=== PATIENT | female | born 1990 | race Caucasian/White ===

== ENCOUNTER 2018-02-04 18:23 | Outpatient (REF) | payer MEDICAID, SELFPAY ==
[2018-02-04 22:23] LABS: HCT 43.4 % (36.0-46.0); HGB 15.2 g/dL (12.0-15.5); Mean Corpuscular Hemoglobin 32.8 pg (27.0-33.0); Mean Corpuscular Volume 93.7 fL (80-95); Mean Platelet Volume 10.8 fL (8.0-11.0); Platelet Count 279 x1000/uL (130-400); RBC 4.63 m/cumm (4.00-5.20); RBC Distribution Width 12.6 % (11.7-14.6); White Blood Cell Count 11.05 k/cumm (4.4-10.8)
[2018-02-04 22:37] LABS: ALT 45 U/L (12-78); AST 24 U/L (15-37); Albumin 4.1 g/dL (3.4-5.0); Alkaline Phosphatase 80 U/L (46-116); BUN 10 mg/dL (7-18); Bilirubin, Total 0.2 mg/dL (0.2-1.0); CREATININE 0.83 mg/dL (0.55-1.02); Calcium 9.1 mg/dL (8.5-10.1); Chloride 104 mmol/L (98-107); Glucose 98 mg/dL (70-100); Lipase 164 U/L (73-393); Potassium 4.4 mmol/L (3.5-5.1); Sodium 140 mmol/L (136-145); Total Protein 7.8 g/dL (6.4-8.2)
== END 2018-02-04 18:24 ==
LOC: NCHCN 18:23
PROVIDERS: PCP Plastic Surgery; Visit Provider Nurse Practitioner Family
DX: R10.9 Unspecified abdominal pain (principal); R19.7 Diarrhea, unspecified
CPT/HCPCS: 80053; 83690; 85027

== ENCOUNTER 2018-02-09 14:46 | Outpatient (REF) | payer MEDICAID, SELFPAY ==
[2018-02-09 21:35] LABS: Abs Immature Grans 0.04 k/cumm (0.0-0.09); Absolute Basophil Count 0.06 k/cumm (0.0-0.2); Absolute Eosinophil Count 0.21 k/cumm (0.0-0.7); Absolute Lymphocyte Count 3.38 k/cumm (1.2-3.4); Absolute Monocyte Count 0.69 k/cumm (0.11-0.7); Basophils % 0.5; Eosinophils % 1.8; HCT 42.2 % (36.0-46.0); HGB 14.7 g/dL (12.0-15.5); Immature Grans % 0.3; Lymphocytes % 28.9; Mean Corp. HGB Concentration 34.8 g/dL (32.0-36.0); Mean Corpuscular Hemoglobin 33.3 pg (27.0-33.0); Mean Corpuscular Volume 95.7 fL (80-95); Mean Platelet Volume 10.7 fL (8.0-11.0); Monocytes % 5.9; Neutrophils % 62.6; Platelet Count 289 x1000/uL (130-400); RBC 4.41 m/cumm (4.00-5.20); RBC Distribution Width 12.5 % (11.7-14.6); White Blood Cell Count 11.68 k/cumm (4.4-10.8)
[2018-02-09 21:36] LABS: Absolute Neutrophil Count 7.31 k/cumm (1.2-6.7)
[2018-02-09 21:42] LABS: ALT 41 U/L (12-78); AST 22 U/L (15-37); Albumin 4.1 g/dL (3.4-5.0); Alkaline Phosphatase 82 U/L (46-116); BUN 10 mg/dL (7-18); CREATININE 1.04 mg/dL (0.55-1.02); Calcium 9.1 mg/dL (8.5-10.1); Chloride 102 mmol/L (98-107); Glucose 128 mg/dL (70-100); Potassium 3.5 mmol/L (3.5-5.1); Sodium 140 mmol/L (136-145); Total Protein 7.9 g/dL (6.4-8.2)
== END 2018-02-09 14:47 ==
LOC: NCHCN 14:46
PROVIDERS: PCP Plastic Surgery; Visit Provider Nurse Practitioner Family
DX: R19.7 Diarrhea, unspecified (principal); R10.9 Unspecified abdominal pain
CPT/HCPCS: 80053; 85025

== ENCOUNTER 2018-02-12 19:57 | Emergency (ER) | payer MEDICAID, SELFPAY ==
[2018-02-12 20:03] VITALS: BP 120/75; PULSE 86; RESP 14; TEMP 37.1; O2SAT 97
--- NOTE | 2018-02-12 20:34 | DI.RPTCT_ITS ---
SYMPTOM/DIAGNOSIS: RUQ , ABD PAIN CT ABDOMEN AND PELVIS: Images were performed from the lung bases through the ischial tuberosities after IV and without oral contrast. The lung bases are clear. The liver, spleen, gallbladder, pancreas, kidneys and adrenals appear normal. The bladder is nearly empty. The uterus and ovaries are within normal limits. The appendix appears normal. There is no bowel dilatation or inflammatory change. No free air, free fluid or adenopathy seen. There are no suspicious bony abnormalities. IMPRESSION: Negative CT of the abdomen and pelvis.
[2018-02-12] MEDS: Omnipaque 350 MG/ML 100 ML BTL IJ (21:16)
[2018-02-12] MEDS: Ketorolac 30 MG/ML VIAL IVP (21:20)
[2018-02-12] MEDS: Normal Saline 1,000 ML 1000 ML IV (21:20)
[2018-02-12] MEDS: Ondansetron O.D.T. 4 MG TABEF PO (21:20)
[2018-02-12 21:26] LABS: Abs Immature Grans 0.04 k/cumm (0.0-0.09); Absolute Basophil Count 0.07 k/cumm (0.0-0.2); Absolute Eosinophil Count 0.33 k/cumm (0.0-0.7); Absolute Lymphocyte Count 3.34 k/cumm (1.2-3.4); Absolute Neutrophil Count 7.23 k/cumm (1.2-6.7); Basophils % 0.6; Eosinophils % 2.8; HCT 41.6 % (36.0-46.0); HGB 14.4 g/dL (12.0-15.5); Immature Grans % 0.3; Lymphocytes % 28.4; Mean Corp. HGB Concentration 34.6 g/dL (32.0-36.0); Mean Corpuscular Hemoglobin 32.6 pg (27.0-33.0); Mean Corpuscular Volume 94.1 fL (80-95); Mean Platelet Volume 10.2 fL (8.0-11.0); Monocytes % 6.5; Neutrophils % 61.4; Platelet Count 271 x1000/uL (130-400); RBC 4.42 m/cumm (4.00-5.20); RBC Distribution Width 12.5 % (11.7-14.6); White Blood Cell Count 11.77 k/cumm (4.4-10.8)
[2018-02-12 21:26] LABS: Bilirubin Negative (Negative); Blood Negative (Negative); Clarity Clear; Glucose Negative (Negative); Ketones Negative (Negative); Leukocyte Esterase Small (Negative); Nitrite Negative (Negative)
--- NOTE | 2018-02-12 21:36 | ED.GENADUL_ITS ---
Disposition Clinical Impression: Abdominal pain, Urinary tract infection Disposition: HOME Condition: Improving Instructions: Urinary Tract Infection in Women (ED), Abdominal Pain (ED) Additional Instructions: Return immediately to the emergency department for any new or significant worsening in symptoms including significant rectal bleeding or hemorrhage, severe increase in pain and discomfort, inability to tolerate any oral intake, any further concerns you may have. Otherwise it is recommended to have a clear liquid diet for the next 2-3 days and slowly advance diet as tolerated. If you are not improving over the next week with your urinary tract infectious symptoms feel free to follow-up with your primary care provider otherwise a referral has been placed for a general surgery follow-up in the next 2 weeks for further testing of your abdominal pain. Prescriptions: Cephalexin [Keflex] 500 mg PO BID #13 cap Ondansetron [Ondansetron Odt] 4 mg PO Q8H PRN #6 tab.rapdis PRN Reason: Nausea Referrals: DAVID CAI [Primary Care Provider] - 1 week (If not improving please follow- up with primary care provider for reassessment next week.) Vannessa Puga MD [ [facility] STAFF PHYSICIAN] - 2 weeks (Follow-up with general surgeon in the next 2 weeks for reassessment of your right upper abdominal pain. ) Forms: Work Release Medical Decision Making - Lab Data Laboratory Tests 02/12/18 02/12/18 20:13 20:50 Urine Color Cancelled Yellow Urine Clarity Cancelled Clear Urine pH Cancelled 7.0 Ur Specific [place] Cancelled 1.020 Urine Protein Cancelled Negative Urine Ketones Cancelled Negative Urine Blood Cancelled Negative Urine Nitrite Cancelled Negative Urine Bilirubin Cancelled Negative Urine Urobilinogen Cancelled 1.0 H Ur Leukocyte Esterase Cancelled Small H Urine Glucose Cancelled Negative Results reviewed for labs ordered during visit: Yes - Radiology Data Radiology results: report reviewed, image reviewed - Medical Decision Making Patient presenting the emergency department for complaint of right upper quadrant pain, nausea and vomiting after eating, and generalized malaise. Patient also states some rectal bleeding that is intermittent with mucus. She states that she has had multiple visits to primary care who has not done anything and said it would just resolve patient does have positive Quesada sign otherwise negative physical exam. Plan to perform labs and radiological imaging of the abdomen with concern for possible gallbladder etiology or inflammatory bowel disease given rectal bleeding. Patient is otherwise stable and no acute signs of distress so plan to give IV fluids and Toradol any results. review of labs that are unremarkable except for mild urinary tract infection and very mild leukocytosis but no obvious anemia or significant blood loss patient consented to rectal examination. CT was also reviewed and shows no acute findings. Rectal examination was done and no blood was seen in rectal vault, no fissure, no hemorrhoids. Given that patient is otherwise feeling well and asymptomatic and afebrile with no major leukocytosis I do feel that patient can be safely discharged with treatment for urinary tract infection otherwise I do feel that she should follow-up with her primary care provider if not improving over the next week otherwise should have more testing done for right upper quadrant pain versus inflammatory bowel disease with consideration of possible HIDA scan or colonoscopy or both. Patient encouraged to return immediately for any new or worsening symptoms otherwise given patient's nausea she was prescribed Zofran and encouraged to take [id number] pain medication as she normally would. After discussion of diagnosis and plan of care with patient patient agreed and stated no further needs, questions, or concerns at this time. History of Present Illness - General Chief complaint: Abd Prob Stated complaint: ABD PAIN Time Seen by Provider: 02/12/18 20:06 Source: patient, RN notes reviewed Mode of arrival: ambulatory Limitations: no limitations - History of Present Illness Initial comments: Patient reports for the past week she has had abdominal pain. She states that it seems to worsen after she eats with significant nausea and vomiting after food intake and right upper quadrant pain. She states that she has been seen by her primary care and they have just told her that it would resolve on its own. Last 3 days she has noted some hematuria and possible blood in her stool as well. She does state that bowel movements have been uncomfortable. Patient denies any fever chills, chest pain, shortness of breath, difficulty breathing. Onset/Timin -: week(s) Location: abdomen, right Radiation: non-radiation Quality: aching Consistency: constant Improves with: none Worsens with: eating Treatments Prior to Arrival: NSAID - Related Data Citalopram [CeleXA] 1 tab PO DAILY 10/05/17 Etonogestrel [Nexplanon] 1 unit DAILY 10/05/17 Ibuprofen 1 tab PO PRN PRN 10/05/17 Zonisamide [Zonegran] 1 cap PO DAILY 10/05/17 Cephalexin [Keflex] 500 mg PO BID #13 cap 02/12/18 Ondansetron [Ondansetron Odt] 4 mg PO Q8H PRN #6 tab.rapdis 02/12/18 Allergies Allergy/AdvReac Type Severity Reaction Status Date / Time metronidazole [From Flagyl] Allergy Severe Hives Unverified 10/05/17 16:39 vancomycin Allergy Severe Hives Unverified 10/05/17 16:39 Review of Systems Constitutional: denies: chills, fever, malaise Respiratory: denies: cough, shortness of breath Cardiovascular: denies: chest pain Gastrointestinal: abdominal pain, nausea, vomiting, diarrhea, hematochezia. denies: constipation, hematemesis, melena Genitourinary: dysuria, hematuria. denies: discharge, abnormal menses Musculoskeletal: denies: back pain Skin: denies: rash Comment: All other systems reviewed and negative Past Medical History - Past Medical History Ovarian cyst, migraine, ibs Surgical history: non-contributory - Social History Smoking status: current everyday smoker Alcohol use: none Drug use: none Living Situation: lives with family General Exam - General Limitations: no limitations General appearance: alert, in no apparent distress, other (Patient comfortably sitting in bed with no acute signs of distress or discomfort) - Head Head exam: Present: atraumatic - ENT ENT exam: Present: mucous membranes moist - Respiratory Respiratory exam: Present: normal lung sounds bilaterally. Absent: respiratory distress, wheezes, rales, rhonchi, stridor, decreased breath sounds - Cardiovascular Cardiovascular Exam: Present: regular rate, normal rhythm, normal heart sounds. Absent: tachycardia, systolic murmur, diastolic murmur, rubs, gallop, clicks - GI/Abdominal GI/Abdominal exam: Present: soft, tenderness (Right upper quadrant), diminished bowel sounds. Absent: guarding, rebound, rigid, organomegaly, mass, bruit, pulsatile mass, hernia - Expanded GI/Abdominal Exam No standard instances GI/Abdominal exam: Present: Quesada's sign. Absent: psoas sign, Rovsing's sign, tenderness at Mcburney's Point - Rectal Rectal exam: Present: normal inspection, normal rectal tone, tenderness (Mild), other (Performed with RN torch solderer in the room). Absent: black stool, bloody stool, fecal impaction, hemorrhoids, mass - Back Exam Back exam: Absent: CVA tenderness (R), CVA tenderness (L) - Neurological Exam Neurological exam: Present: alert, oriented X3. Absent: altered - Psychiatric Psychiatric exam: Present: anxious - Skin Skin exam: Present: warm, dry, normal color. Absent: cyanosis, diaphoretic, pallor, mottled Course Vital Signs - 24 hr 02/12/18 20:03 Temperature 37.1 C Pulse 86 Respiratory 14 Rate Blood Pressure 120/75 Pulse Oximetry 97
[2018-02-12 21:38] LABS: ALT 38 U/L (12-78); AST 23 U/L (15-37); Albumin 3.7 g/dL (3.4-5.0); Alkaline Phosphatase 66 U/L (46-116); Anion Gap 10.2 mmol/L (3-11); BUN 7 mg/dL (7-18); Bilirubin, Total 0.5 mg/dL (0.2-1.0); CO2 25.8 mmol/L (21.0-32.0); CREATININE 0.77 mg/dL (0.55-1.02); Calcium 8.8 mg/dL (8.5-10.1); Chloride 104 mmol/L (98-107); Glucose 100 mg/dL (70-100); Lipase 140 U/L (73-393); Potassium 3.6 mmol/L (3.5-5.1); Sodium 140 mmol/L (136-145); Total Protein 7.8 g/dL (6.4-8.2)
[2018-02-12 21:42] LABS: Bacteria Few HPF (Negative); C & S Indicated? Yes; Casts Negative LPF (Negative); Crystals Negative HPF (Negative); Epithelial Cells Few HPF (Negative); Mucus Negative (Negative); RBC Negative (0-2)
--- NOTE | 2018-02-12 21:42 | DI.VRAD_ITS ---
EXAM: CT Abdomen and Pelvis With Intravenous Contrast CLINICAL HISTORY: 27 years old, female; Pain; Abdominal pain; Localized; Right upper quadrant (ruq); Patient HX: Ruq abd pain TECHNIQUE: Axial computed tomography images of the abdomen and pelvis with intravenous contrast. Coronal and sagittal reformatted images were created and reviewed. COMPARISON: CT - ABD PELVIS WITH CONTRAST 2017-12-03 13:40 FINDINGS: In appendix is normal. Small bilateral ovarian cysts. Normal appearing solid organs. No intestinal obstruction. No obstructive uropathy. No free fluid. No free air. No inflammatory changes. IMPRESSION: No specific etiology identified for the patient's symptoms. Dictated and Authenticated by: Yaron Pierce MD. Ordering:CYNTHIA SINGH MD
[2018-02-12 21:45] LABS: Absolute Monocyte Count 0.77 k/cumm (0.11-0.7)
[2018-02-12] MEDS: Cephalexin 500 MG CAP PO (22:58)
[2018-02-12 23:09] VITALS: BP 120/75; PULSE 86; RESP 14; TEMP 37.1; O2SAT 97
--- NOTE | 2018-02-13 12:44 | PDOC.ERCMPRO ---
Care Management Progress Note 02/13-Mike ELECTRONICS ENGINEER requested assistance with a surgical f/u in 1-2 weeks for RUQ pain with some rectal bleeding. Referral faxed today.
--- NOTE | 2018-02-13 12:45 | CMPROGNOTE_ITS ---
Care Management Progress Note 02/13-Mike NEEDLE CONTROL CHENILLER requested assistance with a surgical f/u in 1-2 weeks for RUQ pain with some rectal bleeding. Referral faxed today.
== END 2018-02-12 23:09 | disposition home or self-care (01) ==
PROVIDERS: Nurse Practitioner Family; Emergency Provider Emergency Medicine; PCP Nurse Practitioner Family
DX: R10.11 Right upper quadrant pain (principal); N39.0 Urinary tract infection, site not specified; R11.2 Nausea with vomiting, unspecified
CPT/HCPCS: 36415; 80053; 83690; 96361; 96374; 99285; 74177; 81003; 81015; 85025; 87086; 99284; J1885; J3490

== ENCOUNTER 2018-06-28 20:04 | Emergency (ER) | payer MEDICAID, SELFPAY ==
[2018-06-28 20:18] VITALS: BP 132/60; PULSE 79; RESP 16; TEMP 36.9; O2SAT 100
--- NOTE | 2018-06-28 20:22 | W.ED.GENAD ---
Discharge Plan Disposition Patient Disposition: HOME Condition: Stable Discharge Details Chief Complaint: Headache Clinical Impression: Migraine Reason For Visit: head ache 2 weeks Primary Care Provider: DAVID CAI ED Provider: Pedro Pablo Chin Home Meds and New Rx's Prescriptions: No Action bupropion HCl 150 MG tablet extended release 12 hr 150 mg PO DAILY RF: 0 Tension Headache 500-65 mg Tablet 2 tab PO PRN PRNRF: 0 citalopram 40 MG tablet 1 tab PO DAILY RF: 0 zonisamide [Zonegran] 100 MG capsule 1 cap PO DAILY RF: 0 Nexplanon 68 MG implant 1 unit DAILY RF: 0 ibuprofen 200 MG tablet 1 tab PO PRN PRNRF: 0 ondansetron 4 MG tablet,disintegrating 4 mg PO Q8H PRN (Reason: Nausea) Qty: 6 RF: 0 Discharge Instructions Additional Instructions: Based on your exam tonight I suspect this is a migraine. We performed a cervical injection which did help your symptoms follow up with your primary care provider this week if you have fevers, persistent vomit or new symptoms such as chest pain or abdominal pain or weakness on one side of the body return to the emergency department you can take 1000mg tylenol and 600mg ibuprofen every 6 hours for pain as needed Medical Decision Making 27 yo female with hx of migraines and prior meningitis per pt comes in with complaint of headaches similar to her prior migraines for 2 weeks with photophobia. She denies fevers, neck pain/stiffness and has no meningismus on exam. Has normal neurological exam, no papilledema to suggest increased intracranial pressure, and CN II-XII are all intact so doubt entities such as cerebral venous thrombosis or vacernous sinus thrombosis. No findigns to suggest meningitis at this time. Headache did not reach peak immediately and is similar to prior migraines so doubt sah at this time. Will treat her symptoms and monitor. pt did not get any relief with meds. Stable neuro exam and CN II-XII intact and no papilledema. My suspicious for ich, sah, sex worker or escort infection, cavernous sinus thrombosis and other life threatening pathology is low .Has normal eye exam and iop 10 in both eyes so doubt glaucoma. I did recommend ct and further workup potentially ct venogram/cta and lp but she declined at this time. She has capacity to make her own decisions and understands risks. My suspicion that this is a migraine and not life threatening pathology is high so feel she is making a reasonable choice. She is willing to let me try paraspinous injection in lower neck pt had significant relief of pain after injection of 1.5cc of 0.25% bupivicaine lateral to c7 bilaterally. Advised f/u with pcp and return precautions given Differential Diagnosis migraine headache, tension headache, HPI General Mode of arrival: ambulatory. Date/Time Provider Initiated Documentation: 06/28/18 20:13. Limitations to Documentation: no limitations. Information obtained by: patient. History of Present Illness 27 year old F presents to the emergency department with the chief complaint of headache, described as severe, with intensity rated at 9. Quality is described as stabbing, and is localized to the head. Patient reports no radiation. Patient started experiencing this week(s) (2) and it has been intermittent. No relieving factors improve symptom(s), Other factors that worsen symptoms (light) . Patient notes nausea/vomiting. Patient did receive the following treatments prior to arrival, none Related Data Home Medications Medication Instructions Recorded Confirmed Nexplanon 1 unit DAILY 10/05/17 06/28/18 citalopram 1 tab PO DAILY 10/05/17 06/28/18 ibuprofen 1 tab PO PRN PRN 10/05/17 02/18/18 zonisamide [Zonegran] 1 cap PO DAILY 10/05/17 06/28/18 ondansetron 4 mg PO Q8H PRN #6 tab.rapdis 02/12/18 02/18/18 bupropion HCl 150 mg PO DAILY 02/18/18 06/28/18 acetaminophen-caffeine [Tension 2 tab PO PRN PRN 06/28/18 06/28/18 Headache] Previous Rx's Medication Instructions Recorded ondansetron 4 mg PO Q8H PRN #6 tab.rapdis 02/12/18 Allergies Allergy/AdvReac Type Severity Reaction Status Date / Time metronidazole [From Flagyl] Allergy Severe Hives Unverified 06/28/18 20:22 vancomycin Allergy Severe Hives Unverified 06/28/18 20:22 General Stated Complaint: Headache JAYE: 3 Review of Systems Review of Systems All systems reviewed & are unremarkable except as noted in HPI and below Constitutional Denies chills, Denies fever(s) and Denies weakness Cardiovascular Denies chest pain and Denies dyspnea Respiratory Denies dyspnea Gastrointestinal Denies abdominal pain Integumentary/Breasts Denies rash Neurologic Denies weakness Endocrine Denies heat intolerance PFSH Social History Smoking/Tobacco Use Status: Current every day Exam Const General: no acute distress Orientation: alert [facility] Head: normal to inspection Ears: external ears normal General nose exam: external nose normal Mouth: moist mucous membranes Eyes General: appearance normal, both eyes and all related structures Neck Neck: normal visual inspection Resp Effort & Inspection: normal respiratory effort and able to speak in complete sentences Cardio Rate: regular rate Skin General skin exam: no rashes or lesions noted Neuro General: alert and oriented x3 Extrem General: normal to inspection Psych Mental Status: mental status grossly normal Course Vital Signs Temperature 36.9 C 06/28/18 20:18 Pulse 79 06/28/18 20:18 Respiratory Rate 16 06/28/18 20:18 Blood Pressure 132/60 06/28/18 20:18 Pulse Oximetry 100 06/28/18 20:18 Temperature 36.9 C 06/28/18 20:18 Temperature Source Temporal Artery Scan 06/28/18 20:18 Pulse 79 06/28/18 20:18 Respiratory Rate 16 06/28/18 20:18 Blood Pressure 132/60 06/28/18 20:18 Blood Pressure Position Supine 06/28/18 20:18 Pulse Oximetry 100 06/28/18 20:18 Oxygen Delivery Method Room Air 06/28/18 20:18 Oxygen Flow Rate 0 06/28/18 20:18 Pain Level 8 06/28/18 20:18
[2018-06-28] MEDS: Normal Saline 1,000 ML 1000 ML IV (20:41)
[2018-06-28] MEDS: Dexamethasone 10 MG/ML VIAL IVP (20:42)
[2018-06-28] MEDS: Ketorolac 30 MG/ML VIAL IVP (20:42)
[2018-06-28] MEDS: SUMAtriptan 6 MG/0.5 ML VIAL SC (20:51)
[2018-06-28] MEDS: MAGNESIUM SULFATE 1 GM/100 ML BAG IVPB (20:51)
[2018-06-28 21:04] VITALS: BP 145/85; PULSE 62; RESP 16; O2SAT 100
== END 2018-06-28 22:41 | disposition home or self-care (01) ==
PROVIDERS: Emergency Provider Emergency Medicine; PCP Nurse Practitioner Family
DX: G43.909 Migraine, unspecified, not intractable, without status migrainosus (principal)
CPT/HCPCS: 62270; 64405; 96361; 96365; 96372; 96375; 99284; J1100; J1885; J3475

== ENCOUNTER 2018-06-29 14:43 | Inpatient (IN) | payer MEDICAID, SELFPAY ==
[2018-06-29] VITALS (7 sets, daily range): BP systolic 109–153; BP diastolic 59–81; PULSE 51–101; RESP 19–20; TEMP 37–37.7; O2SAT 96–100
--- NOTE | 2018-06-29 15:17 | DI.CT_ITS ---
SYMPTOM/DIAGNOSIS: UNRELIEVED HEADACHE NONCONTRAST HEAD CT: No intracranial hemorrhage, mass or infarct is seen. The ventricles are normal in size. There is no evidence of skull fracture or sinus opacification. IMPRESSION: Negative head CT.
--- NOTE | 2018-06-29 15:17 | W.ED.GENAD ---
Discharge Plan Disposition Patient Disposition: [facility] INPATIENT Condition: Stable Discharge Details Chief Complaint: Headache Clinical Impression: Migraine with status migrainosus Reason For Visit: STATUS MIGRAINE Admit Date/Time: 06/29/18 21:11 Admit Provider: Pedro Pablo Medina Attending Provider: Pedro Pablo Medina Primary Care Provider: DAVID CAI ED Provider: Anibal Guevara Medical Decision Making 27-year-old female presents from home complaining of recurrent, severe migraine headache similar to previous in the past. She was seen in our emergency department yesterday and received parenteral medications and fluids. She underwent occipital block with Marcaine. She had some improvement. She has recurrent symptoms today. She does not have a stiff neck or fever. Neurologic examination is intact. She does have a long history of migraine headaches. She underwent CT scan of the head. IV was placed, patient given parenteral fluids and medications. Laboratories reveal elevated white blood cell count of 22. Chemistries reassuring. CT scan of the head without acute intracranial process. Discussed with patient differential diagnosis that that would include meningitis, consented the risks and benefits of a lumbar puncture. With 22-gauge Tasia needle and patient intolerant of more than 1 reposition and no fluid obtained. Anesthesia subsequently consulted and procedure performed. No evidence of acute meningitis. Culture was ordered. Given her ongoing significant headache, and minimal improvement, will admit for further observation and management. Case discussed with Dr Medina and patient to be admitted. Lab Data Lab results reviewed: Yes I reviewed the patient's lab results. Laboratory Results - last 24 hr Laboratory Results - last 24 hr 06/29/18 06/29/18 06/29/18 15:20 15:20 19:40 WBC 22.69 H RBC 4.53 Hgb 14.5 Hct 41.1 MCV 90.7 MCH 32.0 MCHC 35.3 RDW 12.5 Plt Count 326 MPV 9.8 Immature Gran % 0.5 Neutrophils % 87.2 Lymphocytes % 7.8 Monocytes % 4.4 Eosinophils % 0.0 Basophils % 0.1 Absolute Neutrophils 19.79 H Absolute Lymphocytes 1.77 Absolute Monocytes 1.00 H Absolute Eosinophils 0.00 Absolute Basophils 0.02 Xanthochromia Absent Sodium 139 Potassium 3.6 Chloride 103 Carbon Dioxide 24.6 Anion Gap 11.4 H BUN 5 L Creatinine 1.06 H Estimated GFR/1.73 m2 >= 60.00 Glucose 215 H Calcium 9.1 Magnesium 1.8 Total Bilirubin 0.3 AST 16 ALT 46 Alkaline Phosphatase 71 Total Protein 7.9 Albumin 3.8 Fluid Source Cancelled Fluid Color Cancelled Fluid Appearance Cancelled Fluid WBC Cancelled Fluid Mononuclear Cell Cancelled Fl Polymorphonucl Cell Cancelled Fluid Other Cells Cancelled CSF Tube Number 1 CSF Color Colorless CSF Clarity Clear CSF WBC 0 CSF RBC 37 H CSF RBC (1) Not Applicable CSF Diff Comment Not Applicable CSF Glucose CSF Total Protein Path Cons Comment Cancelled 06/29/18 19:40 WBC RBC Hgb Hct MCV MCH MCHC RDW Plt Count MPV Immature Gran % Neutrophils % Lymphocytes % Monocytes % Eosinophils % Basophils % Absolute Neutrophils Absolute Lymphocytes Absolute Monocytes Absolute Eosinophils Absolute Basophils Xanthochromia Sodium Potassium Chloride Carbon Dioxide Anion Gap BUN Creatinine Estimated GFR/1.73 m2 Glucose Calcium Magnesium Total Bilirubin AST ALT Alkaline Phosphatase Total Protein Albumin Fluid Source Fluid Color Fluid Appearance Fluid WBC Fluid Mononuclear Cell Fl Polymorphonucl Cell Fluid Other Cells CSF Tube Number CSF Color CSF Clarity CSF WBC CSF RBC CSF RBC (1) CSF Diff Comment CSF Glucose 104 H CSF Total Protein 50 H Path Cons Comment 06/29/18 06/29/18 15:20 15:20 WBC 22.69 H RBC 4.53 Hgb 14.5 Hct 41.1 MCV 90.7 MCH 32.0 MCHC 35.3 RDW 12.5 Plt Count 326 MPV 9.8 Immature Gran % 0.5 Neutrophils % 87.2 Lymphocytes % 7.8 Monocytes % 4.4 Eosinophils % 0.0 Basophils % 0.1 Absolute Neutrophils 19.79 H Absolute Lymphocytes 1.77 Absolute Monocytes 1.00 H Absolute Eosinophils 0.00 Absolute Basophils 0.02 Sodium 139 Potassium 3.6 Chloride 103 Carbon Dioxide 24.6 Anion Gap 11.4 H BUN 5 L Creatinine 1.06 H Estimated GFR/1.73 m2 >= 60.00 Glucose 215 H Calcium 9.1 Magnesium 1.8 Total Bilirubin 0.3 AST 16 ALT 46 Alkaline Phosphatase 71 Total Protein 7.9 Albumin 3.8 HPI General Mode of arrival: ambulatory. Date/Time Provider Initiated Documentation: 06/29/18 15:06. Limitations to Documentation: no limitations. Information obtained by: patient and family. History of Present Illness described as severe and similar to prior episodes, Quality is described as dull and constant, and is localized to the head. Patient reports no radiation. Patient started experiencing this day(s) and it has been constant. No relieving factors improve symptom(s), Other factors that worsen symptoms (Light and noise) . Patient notes nausea/vomiting. Patient did receive the following treatments prior to arrival, NSAID and other Related Data Home Medications Medication Instructions Recorded Confirmed Nexplanon 1 unit DAILY 10/05/17 06/29/18 citalopram 1 tab PO DAILY 10/05/17 06/29/18 ibuprofen 1 tab PO PRN PRN 10/05/17 06/29/18 zonisamide [Zonegran] 1 cap PO DAILY 10/05/17 06/29/18 ondansetron 4 mg PO Q8H PRN #6 tab.rapdis 02/12/18 06/29/18 bupropion HCl 150 mg PO DAILY 02/18/18 06/29/18 acetaminophen-caffeine [Tension 2 tab PO PRN PRN 06/28/18 06/29/18 Headache] Previous Rx's Medication Instructions Recorded ondansetron 4 mg PO Q8H PRN #6 tab.rapdis 02/12/18 Allergies Allergy/AdvReac Type Severity Reaction Status Date / Time metronidazole [From Flagyl] Allergy Severe Hives Unverified 06/29/18 14:55 vancomycin Allergy Severe Hives Unverified 06/29/18 14:55 adhesive tape Allergy Mild Hives Unverified 06/29/18 21:55 General Stated Complaint: Headache JAYE: 2 Review of Systems Review of Systems No difficulty with speech, gait, no numbness or tingling. No fever or neck stiffness. No fall. No recent travel. No known sick contacts. 8 systems reviewed and other was negative [facility], [facility]1983 Social History Smoking/Tobacco Use Status: Current every day Exam Narrative Exam Narrative: GEN: awake, alert, oriented 3. Pleasant, well groomed, interactive. HEAD: Normocephalic, atraumatic ENT: Mucous membranes moist, oropharynx unremarkable, External ear exam unremarkable EYES: PERRL, EOMI NECK: Full ROM, no ROBE, no menigismus CHEST/RESP: Nontender, clear to auscultation bilateral, no wheeze/rhonchi/rales CARDIOVASCULAR: RRR, no murmur, rub kaley. 2+ Rad pulse bilateral ABDOMEN: Soft, nontender, no mass. +Bowel sounds EXT: Full ROM, no edema, no rash. Cranial nerves II through XII intact. Visual gamboa infect intact to confrontation. Neuro: Grossly normal neurologic exam, conversant, interactive. Psych: Speech fluent, thoughts congruent, affect normal Course Vital Signs Temperature 37.2 C 06/29/18 14:53 Pulse 101 H 06/29/18 14:53 Respiratory Rate 20 06/29/18 14:53 Blood Pressure 153/81 H 06/29/18 14:53 Pulse Oximetry 100 06/29/18 14:53 Temperature 37.2 C 06/29/18 14:53 Temperature Source Temporal Artery Scan 06/29/18 14:53 Pulse 101 H 06/29/18 14:53 Respiratory Rate 20 06/29/18 14:53 Respiratory Effort Non-Labored 06/29/18 14:53 Blood Pressure 153/81 H 06/29/18 14:53 Blood Pressure Position Sitting 06/29/18 14:53 Pulse Oximetry 100 06/29/18 14:53 Oxygen Delivery Method Room Air 06/29/18 14:53 Oxygen Flow Rate 0 06/29/18 14:53 Pain Level 9 06/29/18 14:55
--- NOTE | 2018-06-29 15:22 | ED.GENADUL_ITS ---
Discharge Plan Disposition Patient Disposition: [facility] INPATIENT Condition: Stable Discharge Details Chief Complaint: Headache Clinical Impression: Migraine with status migrainosus Reason For Visit: STATUS MIGRAINE Admit Date/Time: 06/29/18 21:11 Admit Provider: Pedro Pablo Medina Attending Provider: Pedro Pablo Medina Primary Care Provider: DAVID CAI ED Provider: Anibal Guevara Medical Decision Making 27-year-old female presents from home complaining of recurrent, severe migraine headache similar to previous in the past. She was seen in our emergency department yesterday and received parenteral medications and fluids. She underwent occipital block with Marcaine. She had some improvement. She has recurrent symptoms today. She does not have a stiff neck or fever. Neurologic examination is intact. She does have a long history of migraine headaches. She underwent CT scan of the head. IV was placed, patient given parenteral fluids and medications. Laboratories reveal elevated white blood cell count of 22. Chemistries reassuring. CT scan of the head without acute intracranial process. Discussed with patient differential diagnosis that that would include meningitis, consented the risks and benefits of a lumbar puncture. With 22- gauge Tasia needle and patient intolerant of more than 1 reposition and no fluid obtained. Anesthesia subsequently consulted and procedure performed. No evidence of acute meningitis. Culture was ordered. Given her ongoing significant headache, and minimal improvement, will admit for further observation and management. Case discussed with Dr Medina and patient to be admitted. Lab Data Lab results reviewed: Yes I reviewed the patient's lab results. Laboratory Results - last 24 hr Laboratory Results - last 24 hr 06/29/18 06/29/18 06/29/18 15:20 15:20 19:40 WBC 22.69 H RBC 4.53 Hgb 14.5 Hct 41.1 MCV 90.7 MCH 32.0 MCHC 35.3 RDW 12.5 Plt Count 326 MPV 9.8 Immature Gran % 0.5 Neutrophils % 87.2 Lymphocytes % 7.8 Monocytes % 4.4 Eosinophils % 0.0 Basophils % 0.1 Absolute Neutrophils 19.79 H Absolute Lymphocytes 1.77 Absolute Monocytes 1.00 H Absolute Eosinophils 0.00 Absolute Basophils 0.02 Xanthochromia Absent Sodium 139 Potassium 3.6 Chloride 103 Carbon Dioxide 24.6 Anion Gap 11.4 H BUN 5 L Creatinine 1.06 H Estimated GFR/1.73 m2 >= 60.00 Glucose 215 H Calcium 9.1 Magnesium 1.8 Total Bilirubin 0.3 AST 16 ALT 46 Alkaline Phosphatase 71 Total Protein 7.9 Albumin 3.8 Fluid Source Cancelled Fluid Color Cancelled Fluid Appearance Cancelled Fluid WBC Cancelled Fluid Mononuclear Cell Cancelled Fl Polymorphonucl Cell Cancelled Fluid Other Cells Cancelled CSF Tube Number 1 CSF Color Colorless CSF Clarity Clear CSF WBC 0 CSF RBC 37 H CSF RBC (1) Not Applicable CSF Diff Comment Not Applicable CSF Glucose CSF Total Protein Path Cons Comment Cancelled 06/29/18 19:40 WBC RBC Hgb Hct MCV MCH MCHC RDW Plt Count MPV Immature Gran % Neutrophils % Lymphocytes % Monocytes % Eosinophils % Basophils % Absolute Neutrophils Absolute Lymphocytes Absolute Monocytes Absolute Eosinophils Absolute Basophils Xanthochromia Sodium Potassium Chloride Carbon Dioxide Anion Gap BUN Creatinine Estimated GFR/1.73 m2 Glucose Calcium Magnesium Total Bilirubin AST ALT Alkaline Phosphatase Total Protein Albumin Fluid Source Fluid Color Fluid Appearance Fluid WBC Fluid Mononuclear Cell Fl Polymorphonucl Cell Fluid Other Cells CSF Tube Number CSF Color CSF Clarity CSF WBC CSF RBC CSF RBC (1) CSF Diff Comment CSF Glucose 104 H CSF Total Protein 50 H Path Cons Comment 06/29/18 06/29/18 15:20 15:20 WBC 22.69 H RBC 4.53 Hgb 14.5 Hct 41.1 MCV 90.7 MCH 32.0 MCHC 35.3 RDW 12.5 Plt Count 326 MPV 9.8 Immature Gran % 0.5 Neutrophils % 87.2 Lymphocytes % 7.8 Monocytes % 4.4 Eosinophils % 0.0 Basophils % 0.1 Absolute Neutrophils 19.79 H Absolute Lymphocytes 1.77 Absolute Monocytes 1.00 H Absolute Eosinophils 0.00 Absolute Basophils 0.02 Sodium 139 Potassium 3.6 Chloride 103 Carbon Dioxide 24.6 Anion Gap 11.4 H BUN 5 L Creatinine 1.06 H Estimated GFR/1.73 m2 >= 60.00 Glucose 215 H Calcium 9.1 Magnesium 1.8 Total Bilirubin 0.3 AST 16 ALT 46 Alkaline Phosphatase 71 Total Protein 7.9 Albumin 3.8 HPI General Mode of arrival: ambulatory . Date/Time Provider Initiated Documentation: 06/29/18 15:06 . Limitations to Documentation: no limitations . Information obtained by: patient and family . History of Present Illness described as severe and similar to prior episodes, Quality is described as dull and constant, and is localized to the head. Patient reports no radiation. Patient started experiencing this day(s) and it has been constant. No relieving factors improve symptom(s), Other factors that worsen symptoms (Light and noise) . Patient notes nausea/vomiting. Patient did receive the following treatments prior to arrival, NSAID and other Related Data Home Medications Medication Instructions Recorded Confirmed Nexplanon 1 unit DAILY 10/05/17 06/29/18 citalopram 1 tab PO DAILY 10/05/17 06/29/18 ibuprofen 1 tab PO PRN PRN 10/05/17 06/29/18 zonisamide [Zonegran] 1 cap PO DAILY 10/05/17 06/29/18 ondansetron 4 mg PO Q8H PRN #6 tab.rapdis 02/12/18 06/29/18 bupropion HCl 150 mg PO DAILY 02/18/18 06/29/18 acetaminophen-caffeine [Tension 2 tab PO PRN PRN 06/28/18 06/29/18 Headache] Previous Rx's Medication Instructions Recorded ondansetron 4 mg PO Q8H PRN #6 tab.rapdis 02/12/18 Allergies Allergy/AdvReac Type Severity Reaction Status Date / Time metronidazole [From Flagyl] Allergy Severe Hives Unverified 06/29/18 14:55 vancomycin Allergy Severe Hives Unverified 06/29/18 14:55 adhesive tape Allergy Mild Hives Unverified 06/29/18 21:55 General Stated Complaint: Headache JAYE: 2 Review of Systems Review of Systems No difficulty with speech, gait, no numbness or tingling. No fever or neck stiffness. No fall. No recent travel. No known sick contacts. 8 systems reviewed and other was negative [facility] Social History Smoking/Tobacco Use Status: Current every day Exam Narrative Exam Narrative: GEN: awake, alert, oriented 3. Pleasant, well groomed, interactive. HEAD: Normocephalic, atraumatic ENT: Mucous membranes moist, oropharynx unremarkable, External ear exam unremarkable EYES: PERRL, EOMI NECK: Full ROM, no ROBE, no menigismus CHEST/RESP: Nontender, clear to auscultation bilateral, no wheeze/rhonchi/rales CARDIOVASCULAR: RRR, no murmur, rub kaley. 2+ Rad pulse bilateral ABDOMEN: Soft, nontender, no mass. +Bowel sounds EXT: Full ROM, no edema, no rash. Cranial nerves II through XII intact. Visual gamboa infect intact to confrontation. Neuro: Grossly normal neurologic exam, conversant, interactive. Psych: Speech fluent, thoughts congruent, affect normal Course Vital Signs Temperature 37.2 C 06/29/18 14:53 Pulse 101 H 06/29/18 14:53 Respiratory Rate 20 06/29/18 14:53 Blood Pressure 153/81 H 06/29/18 14:53 Pulse Oximetry 100 06/29/18 14:53 Temperature 37.2 C 06/29/18 14:53 Temperature Source Temporal Artery Scan 06/29/18 14:53 Pulse 101 H 06/29/18 14:53 Respiratory Rate 20 06/29/18 14:53 Respiratory Effort Non-Labored 06/29/18 14:53 Blood Pressure 153/81 H 06/29/18 14:53 Blood Pressure Position Sitting 06/29/18 14:53 Pulse Oximetry 100 06/29/18 14:53 Oxygen Delivery Method Room Air 06/29/18 14:53 Oxygen Flow Rate 0 06/29/18 14:53 Pain Level 9 06/29/18 14:55
[2018-06-29] MEDS: Dexamethasone 10 MG/ML VIAL IVP (15:24)
[2018-06-29] MEDS: diphenhydrAMINE 50 MG/ML VIAL IVP (15:24)
[2018-06-29] MEDS: Normal Saline 1,000 ML 1000 ML IV (15:25)
[2018-06-29] MEDS: Ketorolac 30 MG/ML VIAL IVP (15:30)
[2018-06-29] MEDS: Ondansetron 4 MG/2 ML VIAL IVP (15:31)
[2018-06-29 15:33] LABS: Abs Immature Grans 0.11 k/cumm (0.0-0.09); Absolute Basophil Count 0.02 k/cumm (0.0-0.2); Absolute Lymphocyte Count 1.77 k/cumm (1.2-3.4); Absolute Neutrophil Count 19.79 k/cumm (1.2-6.7); Basophils % 0.1; HCT 41.1 % (36.0-46.0); HGB 14.5 g/dL (12.0-15.5); Immature Grans % 0.5; Lymphocytes % 7.8; Mean Corp. HGB Concentration 35.3 g/dL (32.0-36.0); Mean Corpuscular Volume 90.7 fL (80-95); Mean Platelet Volume 9.8 fL (8.0-11.0); Monocytes % 4.4; Neutrophils % 87.2; Platelet Count 326 x1000/uL (130-400); RBC 4.53 m/cumm (4.00-5.20); RBC Distribution Width 12.5 % (11.7-14.6); White Blood Cell Count 22.69 k/cumm (4.4-10.8)
[2018-06-29 15:44] LABS: ALT 46 U/L (12-78); AST 16 U/L (15-37); Albumin 3.8 g/dL (3.4-5.0); Alkaline Phosphatase 71 U/L (46-116); Anion Gap 11.4 mmol/L (3-11); BUN 5 mg/dL (7-18); Bilirubin, Total 0.3 mg/dL (0.2-1.0); CO2 24.6 mmol/L (21.0-32.0); CREATININE 1.06 mg/dL (0.55-1.02); Calcium 9.1 mg/dL (8.5-10.1); Chloride 103 mmol/L (98-107); Glucose 215 mg/dL (70-100); Magnesium 1.8 mg/dL (1.8-2.4); Potassium 3.6 mmol/L (3.5-5.1); Sodium 139 mmol/L (136-145); Total Protein 7.9 g/dL (6.4-8.2)
[2018-06-29] MEDS: LORazepam 2 MG/ML VIAL 0.5 MG IVP (16:23)
--- NOTE | 2018-06-29 16:31 | DI.VRAD_ITS ---
EXAM: CT Head Without Contrast EXAM DATE/TIME: 06/29/2018 3:20 PM CLINICAL HISTORY: 27 years old, female; Pain; Headache; Headache not specified; Patient HX: Unrelieved headache, per PT: Couple weeks TECHNIQUE: Axial computed tomography images of the head/brain without contrast. Coronal and sagittal reformatted images were created and reviewed. COMPARISON: No relevant prior studies available. FINDINGS: No evidence of hemorrhage. No mass effect. No acute intracranial abnormality. IMPRESSION: No evidence of acute intracranial process. Dictated and Authenticated by: Yaron Pierce MD. Ordering:CHIDI Barnett MD
[2018-06-29] MEDS: HYDROmorphone 2 MG/ML VIAL 0.5 MG IVP (19:14)
[2018-06-29 20:25] LABS: Clarity Clear; Tube # 1; WBC 0 /mm3 (0-5); Xanthochromia Absent
[2018-06-29 20:27] LABS: Glucose (CSF) 104 mg/dL (40-70); RBC 37 /mm3 (0-5); Total Protein (CSF) 50 mg/dL (15-45)
[2018-06-29] MEDS: Acetaminophen 500 MG TAB 1000 MG PO (21:31)
[2018-06-29] MEDS: Normal Saline 1,000 ML 100 ML IV (22:40)
[2018-06-29] MEDS: Normal Saline Flush 10 ML SYR IVP (22:41)
[2018-06-30] VITALS (8 sets, daily range): BP systolic 123–149; BP diastolic 63–84; PULSE 73–92; RESP 16–20; TEMP 36.9–38.1; O2SAT 95–97
--- NOTE | 2018-06-30 00:09 | W.PM.HP.N ---
Date of service: 06/30/18 Time of Service: 00:09 Assessment and Plan (1) Migraine headache: Current visit: Yes Status: Chronic Persistent migraine, 2 weeks in duration. Nothing so far seems to have altered the course subjectively for the patient. On my exam she looks comfortable and does not show any neurologic sequelae. She is written for antiemetics and parenteral opioid analgesics, Dilaudid 0.5 mg IV every 4 hours as needed. We will continue to monitor in observation status. Consider further imaging with MRI if no improvement. (2) Depression: Current visit: Yes Status: Acute Prior history of severe depression with suicidality. She denies any suicidality at this time. Will continue current meds. History of Present Illness Chief Complaint: Status migraine Narrative: This is a 27-year-old woman who has been to the emergency room 2 nights in a row with a severe headache. She states she has had a headache for 2 weeks. On 06/28/2018 she had a cervical injection which appeared to help her symptoms, she was discharged on acetaminophen and ibuprofen for pain. She returned the following evening again stating the headache was unchanged. Her neuro exam and diagnostic studies were unremarkable. She had a lumbar puncture that showed clear fluid. She did have a leukocytosis with a white count of 22,000. Despite IV Decadron, Benadryl, Dilaudid her headache was unchanged. She is admitted to observation status with plans to discuss with neurology and possibly consider MRI imaging. Review of Systems Constitutional Reports difficulty sleeping and Reports headache(s) Eyes Reports blurry vision and Denies loss of vision ENT Reports headache(s) Cardiovascular Denies chest pain Respiratory Denies cough Gastrointestinal Reports nausea Musculoskeletal Denies muscle weakness Neurologic Denies abnormal speech, Denies confusion, Reports headache(s) and Denies loss of vision Psychiatric Denies confusion and Denies suicidal ideation [facility] Social History Smoking/Tobacco Use Status: Current every day History History Para Hx # Term Pregnancies 1 Multiple births Hx # Pregnancies Ectopic pregnancies AB induced Hx Number of Living Children AB spontaneous Meds Home Medications Medication Instructions Recorded Confirmed Type Nexplanon 1 unit DAILY 10/05/17 06/29/18 History citalopram 1 tab PO DAILY 10/05/17 06/29/18 History ibuprofen 1 tab PO PRN PRN 10/05/17 06/29/18 History zonisamide [Zonegran] 1 cap PO DAILY 10/05/17 06/29/18 History ondansetron 4 mg PO Q8H PRN #6 tab.rapdis 02/12/18 06/29/18 Rx bupropion HCl 150 mg PO DAILY 02/18/18 06/29/18 History acetaminophen-caffeine [Tension 2 tab PO PRN PRN 06/28/18 06/29/18 History Headache] Allergies Allergy/AdvReac Type Severity Reaction Status Date / Time metronidazole [From Flagyl] Allergy Severe Hives Unverified 06/29/18 14:55 vancomycin Allergy Severe Hives Unverified 06/29/18 14:55 adhesive tape Allergy Mild Hives Unverified 06/29/18 21:55 Exam Narrative Exam Narrative: Sitting up in bed watching the '[employer] [place] celebration with her boyfriend. She appeared in no apparent distress. She answers questions readily. She described the pain as being behind her eyes and at the base of her skull as a tingling sensation. Her neurologic exam was unremarkable, moves all extremities no apparent deficits. Const General: cooperative and no acute distress Nutritional Appearance: obese Orientation: alert, awake and oriented x3 HENMT Head: normal to inspection Ears: hearing grossly normal bilaterally General nose exam: external nose normal Face and sinus: normal facial exam Eyes General: appearance normal, both eyes and all related structures Pupils: pupil size (Equal) Other: Some redness of the sclera bilaterally. No apparent discharge or drainage. Neck Neck: normal visual inspection and full ROM Chest Chest: normal inspection of the chest Resp Effort & Inspection: normal respiratory effort Auscultation: clear to auscultation bilaterally Cardio Rate: regular rate Rhythm: regular rhythm Heart Sounds: S1 normal, S2 normal and no murmurs GI Inspection: normal to inspection Palpation: nontender Back/Spine/Pelvis Cervical Spine: normal cervical lordosis Thoracic/Lumbar Spine: thoracic and lumbar spine normal to inspection Skin General skin exam: no rashes or lesions noted Neuro Motor: no movement abnormalities noted Extrem General: no clubbing, cyanosis or edema Psych Appearance: grossly normal Mental Status: mental status grossly normal Speech and Movement: speech and movement normal Mood: congruent mood Affect: normal affect Attitude: cooperative Thought Process: normal Results Imaging Additional studies: CSF showed no white cells, 37 red cells Imaging Studies: Head CT showed no evidence of acute intracranial process Labs : 06/29/18 15:20 06/29/18 15:20 Laboratory Results - last 24 hr 06/29/18 06/29/18 06/29/18 15:20 15:20 19:40 WBC 22.69 H RBC 4.53 Hgb 14.5 Hct 41.1 MCV 90.7 MCH 32.0 MCHC 35.3 RDW 12.5 Plt Count 326 MPV 9.8 Immature Gran % 0.5 Neutrophils % 87.2 Lymphocytes % 7.8 Monocytes % 4.4 Eosinophils % 0.0 Basophils % 0.1 Absolute Neutrophils 19.79 H Absolute Lymphocytes 1.77 Absolute Monocytes 1.00 H Absolute Eosinophils 0.00 Absolute Basophils 0.02 Xanthochromia Absent Sodium 139 Potassium 3.6 Chloride 103 Carbon Dioxide 24.6 Anion Gap 11.4 H BUN 5 L Creatinine 1.06 H Estimated GFR/1.73 m2 >= 60.00 Glucose 215 H Calcium 9.1 Magnesium 1.8 Total Bilirubin 0.3 AST 16 ALT 46 Alkaline Phosphatase 71 Total Protein 7.9 Albumin 3.8 Fluid Source Cancelled Fluid Color Cancelled Fluid Appearance Cancelled Fluid WBC Cancelled Fluid Mononuclear Cell Cancelled Fl Polymorphonucl Cell Cancelled Fluid Other Cells Cancelled CSF Tube Number 1 CSF Color Colorless CSF Clarity Clear CSF WBC 0 CSF RBC 37 H CSF RBC (1) Not Applicable CSF Diff Comment Not Applicable CSF Glucose CSF Total Protein Path Cons Comment Cancelled 06/29/18 19:40 WBC RBC Hgb Hct MCV MCH MCHC RDW Plt Count MPV Immature Gran % Neutrophils % Lymphocytes % Monocytes % Eosinophils % Basophils % Absolute Neutrophils Absolute Lymphocytes Absolute Monocytes Absolute Eosinophils Absolute Basophils Xanthochromia Sodium Potassium Chloride Carbon Dioxide Anion Gap BUN Creatinine Estimated GFR/1.73 m2 Glucose Calcium Magnesium Total Bilirubin AST ALT Alkaline Phosphatase Total Protein Albumin Fluid Source Fluid Color Fluid Appearance Fluid WBC Fluid Mononuclear Cell Fl Polymorphonucl Cell Fluid Other Cells CSF Tube Number CSF Color CSF Clarity CSF WBC CSF RBC CSF RBC (1) CSF Diff Comment CSF Glucose 104 H CSF Total Protein 50 H Path Cons Comment Last Vital Signs Temp 37.0 C 06/29/18 22:09 Pulse 84 06/29/18 22:09 Resp 19 06/29/18 22:09 BP 131/71 06/29/18 22:09 Pulse Ox 96 06/29/18 22:09
[2018-06-30] MEDS: HYDROmorphone 2 MG/ML VIAL 0.5 MG IVP ×3 (00:22→11:21)
[2018-06-30] MEDS: Acetaminophen 325 MG TAB PO ×4 (05:07→19:55)
[2018-06-30] MEDS: Normal Saline 1,000 ML 100 ML IV ×2 (07:53→17:53)
[2018-06-30 08:25] LABS: Abs Immature Grans 0.09 k/cumm (0.0-0.09); Absolute Monocyte Count 1.41 k/cumm (0.11-0.7); Basophils % 0.1; Eosinophils % 0.6; HCT 38.7 % (36.0-46.0); HGB 13.1 g/dL (12.0-15.5); Immature Grans % 0.5; Lymphocytes % 9.1; Mean Corp. HGB Concentration 33.9 g/dL (32.0-36.0); Mean Corpuscular Hemoglobin 31.8 pg (27.0-33.0); Mean Corpuscular Volume 93.9 fL (80-95); Mean Platelet Volume 10.5 fL (8.0-11.0); Monocytes % 7.2; Neutrophils % 82.5; Platelet Count 248 x1000/uL (130-400); RBC 4.12 m/cumm (4.00-5.20); RBC Distribution Width 12.8 % (11.7-14.6); White Blood Cell Count 19.57 k/cumm (4.4-10.8)
[2018-06-30 08:34] LABS: Anion Gap 10.3 mmol/L (3-11); BUN 9 mg/dL (7-18); CO2 23.7 mmol/L (21.0-32.0); CREATININE 0.79 mg/dL (0.55-1.02); Calcium 8.6 mg/dL (8.5-10.1); Chloride 107 mmol/L (98-107); Glucose 148 mg/dL (70-100); Sodium 141 mmol/L (136-145)
[2018-06-30 08:42] LABS: Absolute Basophil Count 0.02 k/cumm (0.0-0.2); Absolute Eosinophil Count 0.12 k/cumm (0.0-0.7); Absolute Lymphocyte Count 1.78 k/cumm (1.2-3.4); Absolute Neutrophil Count 16.15 k/cumm (1.2-6.7)
[2018-06-30] MEDS: Docusate Sodium 100 MG CAP PO (10:49)
[2018-06-30 12:06] LABS: Bilirubin Negative (Negative); Blood Negative (Negative); Clarity Clear; Glucose Negative (Negative); Ketones Negative (Negative); Leukocyte Esterase Negative (Negative); Nitrite Negative (Negative); Specific Gravity 1.015 (1.005-1.025); Urobilinogen 0.2 EU/dL (Up TO 0.2); pH 7.5 (5-8)
[2018-06-30 12:08] LABS: HCG Qual (Urine) Negative
--- NOTE | 2018-06-30 13:26 | DI.RAD_ITS ---
SYMPTOM/DIAGNOSIS: LEUKOCYTOSIS, HEADACHE, ? PNEUMONIA PA AND LATERAL CHEST: There are no prior comparison exams. The lungs are poorly inflated on both views but appear clear. The heart size is normal. IMPRESSION: No acute abnormality.
--- NOTE | 2018-06-30 14:03 | DI.VRAD_ITS ---
EXAM: XR Chest, 2 Views EXAM DATE/TIME: 06/30/2018 1:28 PM CLINICAL HISTORY: 27 years old, female; Signs and symptoms; Other: Leukocytosis; Headache, R/O pna TECHNIQUE: XR of the chest, 2 views. COMPARISON: No relevant prior studies available. FINDINGS: Lungs: Unremarkable. No consolidation. Pleural space: Unremarkable. No pleural effusion. No pneumothorax. Heart/Mediastinum: Unremarkable. No cardiomegaly. Bones/joints: Unremarkable. IMPRESSION: No acute findings. Dictated and Authenticated by: Gerson Pandey MD. Ordering:JONATAN Bowles MD
--- NOTE | 2018-06-30 14:43 | PDOC.CMIN ---
- If Service Date Differs Date of service: 06/30/18 Time of Service: 14:43 Care Management Initial Assess REASON FOR HOSPITALIZATION:: Migraine PAST MEDICAL HISTORY/PAST SURGICAL HISTORY:: Migraine COLÓN, SI, depression. PREVIOUS FUNCTIONAL STATUS/SOCIAL/FAMILY SUPPORTS:: Sarita lives in [place], [place] with her boyfriend. She has five year old daughter that lives with her biological father and she has visitations. 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 She states she is indepedent with ADL's and transportation. CURRENT FUNCTIONAL STATUS:: Sarita is lying in bed she has a blanket wrapped around her head. She states her Migraine has not improved she does not feel she has ever had one this bad. She states that nothing has made it better including the IV dilaudid. She has questions related to care including if she is going to have an MRI.CM explained there is not one currently ordered. She states I just want to know what is wrong with me. ADVANCE DIRECTIVES:: None on file she is unable to complete today. Has patient been provided with information about the portal?: Yes Did the patient sign up for the portal?: No (would like info) CODE STATUS:: Full Code INSURANCE COVERAGE / FINANCIAL ISSUES:: Medicaid CURRENT HOME/COMMUNITY SERVICES/EQUIPMENT:: None at this time PRIMARY CARE PHYSICIAN:: Beba Eduardo [facility] POTENTIAL DISCHARGE NEEDS:: Follow up appointment with primary care provider scheduled prior to discharge. PATIENT/FAMILY EDUCATION NEEDS:: Discharge education, follow up plan of care, limitations, ask me three education and self management. ANTICIPATED BARRIERS TO DISCHARGE:: None identified. TRANSPORTATION:: Via private car with boyfriend at time of discharge. PLAN:: Sarita will remian observation today no change is status. When she is medically ready for discharge she will return home with no anticipated services. CM provided informaiton related to signing up for portal when she is able to concentrate without headache. CM [facility].
--- NOTE | 2018-06-30 14:55 | PGE_ITS ---
Date of Service Date of service: 06/30/18 Time of Service: 14:38 Assessment and Plan (1) Migraine headache: Current visit: Yes Status: Chronic Persistent headache, 2 weeks in duration. Other than a persistent leukocytosis, no other evidence of acute pathology. No neurological deficits noted by exam. The patient reports that this pain is different than her typical migraines, and indeed by history and exam could be more typical of a tension headache. Continue antiemetics, and try to avoid opiates for pain control for possible. Initiated muscle relaxer in the form of Carisoprodol on a standing basis, with as needed Valium. Also significant leukocytosis, but without nuchal rigidity and LP studies that appear completely normal. Further check with chest x-ray and urinalysis also normal. If persistent symptoms consider MRI tomorrow. (2) Depression: Current visit: Yes Status: Acute Prior history of severe depression with suicidality. She denies any suicidality at this time. Will continue current medication regimen consisting of SSRI, and bupropion. Subjective Interval history since last seen: 27-year-old woman with past medical history significant for chronic migraines on suppressive therapy, obesity, and depression admitted from [facility] emergency department on 06/29/2018 with ongoing headaches. Ms. Virgen initially presented to the emergency department on 06/28 with reported headache that is been ongoing for 2 weeks. She received IV fluids, IV pain medications, as well as an occipital block with Marcaine. Despite these measures she did not have relief of her symptoms, and presented back to the emergency department on the day of admission complaining of severe headaches. The patient's neurologic exam, lab work, and imaging of the head were all es sentially negative, with the exception of a leukocytosis with a white count of 22,000. She underwent a successful lumbar puncture which produced clear fluid, with study that were essentially unremarkable. Despite receiving IV steroids, Benadryl, and opiate pain medications her symptoms were not changed, and she was referred for admission. This morning the patient reports continued nausea and headaches that are essentially unchanged. She seems to locate the back of her neck and occiput as the site of origin for her pain, which spread across her head and to the front. Owing to her significant and unchanged leukocytosis a chest x-ray and urinalysis were checked, both unremarkable and without evidence of infection. No other events reported. She remains afebrile. Exam Narrative Exam Narrative: General: Patient appears comfortable, AAOX3, NAD Neck: Supple CV: Regular, nontachycardic, S1S2, No rubs, murmurs, or gallops. Pulmonary: Clear to auscultation bilaterally, no crackles, wheezing, or rhonchi Abdomen: + Bowel Sounds, soft, nontender, nondistended, obese in contour. Vascular: No lower extremity edema Neurologic: CN II-XII grossly intact. No focal deficits. Musculoskeletal: Pain with palpation of the neck, deltoids, and occiput area. Psych: Normal mood and affect. Objective Objective Clinical Data: Abnormal lab results 06/29/18 06/29/18 06/29/18 Range/Units 15:20 15:20 19:40 WBC 22.69 H (4.4-10.8) k/cumm Absolute Neutrophils 19.79 H (1.2-6.7) k/cumm Absolute Monocytes 1.00 H (0.11-0.7) k/cumm Anion Gap 11.4 H (3-11) mmol/L BUN 5 L (7-18) mg/dL Creatinine 1.06 H (0.55-1.02) mg/dL Glucose 215 H (70-100) mg/dL CSF RBC 37 H (0-5) /mm3 CSF Glucose (40-70) mg/dL CSF Total Protein (15-45) mg/dL 06/29/18 06/30/18 06/30/18 Range/Units 19:40 07:35 07:35 WBC 19.57 H (4.4-10.8) k/cumm Absolute Neutrophils 16.15 H (1.2-6.7) k/cumm Absolute Monocytes 1.41 H (0.11-0.7) k/cumm Anion Gap (3-11) mmol/L BUN (7-18) mg/dL Creatinine (0.55-1.02) mg/dL Glucose 148 H (70-100) mg/dL CSF RBC (0-5) /mm3 CSF Glucose 104 H (40-70) mg/dL CSF Total Protein 50 H (15-45) mg/dL Vital Signs Temperature 37.5 C 06/30/18 11:20 Temperature Source Temporal Artery Scan 06/30/18 11:20 Pulse 82 06/30/18 11:20 Pulse Rhythm Regular 06/30/18 08:40 Respiratory Rate 16 06/30/18 11:20 Respiratory Effort Non-Labored 06/30/18 08:40 Respiratory Depth Normal 06/30/18 08:40 Respiratory Pattern Normal 06/30/18 08:40 Blood Pressure 126/81 06/30/18 11:20 Blood Pressure Mean 71 06/29/18 19:05 Blood Pressure Position Sitting 06/29/18 14:53 Pulse Oximetry 96 06/30/18 11:20 Oxygen Delivery Method Room Air 06/30/18 11:20 Oxygen Flow Rate 0 06/30/18 11:20 Pain Level 9 06/30/18 11:21 Intake & Output 06/29/18 06/30/18 06/30/18 23:59 11:59 23:59 Intake Total 2931.667 / 2931.667 Output Total 925 / 925 Balance 667 / 7 Weight 81.647 kg Intake: IV 1921.667 / 1921.667 Oral 1010 / 1010 Output: Urine 925 / 925 Other: Urine Color Yellow Urine Appearance Clear Urine Odor Normal Comment Old void. Pt is aware a urine sample is required, new hat placed in toilet along with clean catch equipment. Voiding Methods Toilet Laboratory Results WBC 19.57 k/cumm (4.4-10.8) H 06/30/18 07:35 RBC 4.12 m/cumm (4.00-5.20) 06/30/18 07:35 Hgb 13.1 g/dL (12.0-15.5) 06/30/18 07:35 Hct 38.7 % (36.0-46.0) 06/30/18 07:35 MCV 93.9 fL (80-95) D 06/30/18 07:35 MCH 31.8 pg (27.0-33.0) 06/30/18 07:35 MCHC 33.9 g/dL (32.0-36.0) 06/30/18 07:35 RDW 12.8 % (11.7-14.6) 06/30/18 07:35 Plt Count 248 x1000/uL (130-400) 06/30/18 07:35 MPV 10.5 fL (8.0-11.0) 06/30/18 07:35 Immature Gran % 0.5 06/30/18 07:35 Neutrophils % 82.5 06/30/18 07:35 Lymphocytes % 9.1 06/30/18 07:35 Monocytes % 7.2 06/30/18 07:35 Eosinophils % 0.6 06/30/18 07:35 Basophils % 0.1 06/30/18 07:35 Absolute Neutrophils 16.15 k/cumm (1.2-6.7) H 06/30/18 07:35 Absolute Lymphocytes 1.78 k/cumm (1.2-3.4) 06/30/18 07:35 Absolute Monocytes 1.41 k/cumm (0.11-0.7) H 06/30/18 07:35 Absolute Eosinophils 0.12 k/cumm (0.0-0.7) 06/30/18 07:35 Absolute Basophils 0.02 k/cumm (0.0-0.2) 06/30/18 07:35 Xanthochromia Absent 06/29/18 19:40 Sodium 141 mmol/L (136-145) 06/30/18 07:35 Potassium 4.0 mmol/L (3.5-5.1) 06/30/18 07:35 Chloride 107 mmol/L (98-107) 06/30/18 07:35 Carbon Dioxide 23.7 mmol/L (21.0-32.0) 06/30/18 07:35 Anion Gap 10.3 mmol/L (3-11) 06/30/18 07:35 BUN 9 mg/dL (7-18) 06/30/18 07:35 Creatinine 0.79 mg/dL (0.55-1.02) 06/30/18 07:35 Estimated GFR/1.73 m2 >= 60.00 (mL/min/1.73m2) 06/30/18 07:35 Glucose 148 mg/dL (70-100) H 06/30/18 07:35 Calcium 8.6 mg/dL (8.5-10.1) 06/30/18 07:35 Magnesium 1.8 mg/dL (1.8-2.4) 06/29/18 15:20 Total Bilirubin 0.3 mg/dL (0.2-1.0) 06/29/18 15:20 AST 16 U/L (15-37) 06/29/18 15:20 ALT 46 U/L (12-78) 06/29/18 15:20 Alkaline Phosphatase 71 U/L (46-116) 06/29/18 15:20 Total Protein 7.9 g/dL (6.4-8.2) 06/29/18 15:20 Albumin 3.8 g/dL (3.4-5.0) 06/29/18 15:20 Urine Color Yellow (Yellow) 06/30/18 11:36 Urine Clarity Clear 06/30/18 11:36 Urine pH 7.5 (5-8) 06/30/18 11:36 Ur Specific [place] 1.015 (1.005-1.025) 06/30/18 11:36 Urine Protein Negative mg/dL (Negative) 06/30/18 11:36 Urine Ketones Negative mg/dL (Negative) 06/30/18 11:36 Urine Blood Negative (Negative) 06/30/18 11:36 Urine Nitrite Negative (Negative) 06/30/18 11:36 Urine Bilirubin Negative (Negative) 06/30/18 11:36 Urine Urobilinogen 0.2 EU/dL (Up TO 0.2) 06/30/18 11:36 Ur Leukocyte Esterase Negative (Negative) 06/30/18 11:36 Urine Glucose Negative mg/dL (Negative) 06/30/18 11:36 Urine HCG, Qual Negative 06/30/18 11:36 Fluid Source Cancelled 06/29/18 19:40 Fluid Color Cancelled 06/29/18 19:40 Fluid Appearance Cancelled 06/29/18 19:40 Fluid WBC Cancelled 06/29/18 19:40 Fluid Mononuclear Cell Cancelled 06/29/18 19:40 Fl Polymorphonucl Cell Cancelled 06/29/18 19:40 Fluid Other Cells Cancelled 06/29/18 19:40 CSF Tube Number 1 06/29/18 19:40 CSF Color Colorless 06/29/18 19:40 CSF Clarity Clear 06/29/18 19:40 CSF WBC 0 /mm3 (0-5) 06/29/18 19:40 CSF RBC 37 /mm3 (0-5) H 06/29/18 19:40 CSF RBC (1) Not Applicable 06/29/18 19:40 CSF Diff Comment Not Applicable 06/29/18 19:40 CSF Glucose 104 mg/dL (40-70) H 06/29/18 19:40 CSF Total Protein 50 mg/dL (15-45) H 06/29/18 19:40 Path Cons Comment Cancelled 06/29/18 19:40 Objective Narrative Objective Narrative: EXAM: CT Head Without Contrast EXAM DATE/TIME: 06/29/2018 3:20 PM CLINICAL HISTORY: 27 years old, female; Pain; Headache; Headache not specified; Patient HX: Unrelieved headache, per PT: Couple weeks TECHNIQUE: Axial computed tomography images of the head/brain without contrast. Coronal and sagittal reformatted images were created and reviewed. COMPARISON: No relevant prior studies available. FINDINGS: No evidence of hemorrhage. No mass effect. No acute intracranial abnormality. IMPRESSION: No evidence of acute intracranial process. EXAM: XR Chest, 2 Views EXAM DATE/TIME: 06/30/2018 1:28 PM CLINICAL HISTORY: 27 years old, female; Signs and symptoms; Other: Leukocytosis; Headache, R/O pna TECHNIQUE: XR of the chest, 2 views. COMPARISON: No relevant prior studies available. FINDINGS: Lungs: Unremarkable. No consolidation. Pleural space: Unremarkable. No pleural effusion. No pneumothorax. Heart/Mediastinum: Unremarkable. No cardiomegaly. Bones/joints: Unremarkable. IMPRESSION: No acute findings.
--- NOTE | 2018-06-30 14:58 | INITIAL_ITS ---
- If Service Date Differs Date of service: 06/30/18 Time of Service: 14:43 Care Management Initial Assess REASON FOR HOSPITALIZATION:: Migraine PAST MEDICAL HISTORY/PAST SURGICAL HISTORY:: Migraine COLÓN, SI, depression. PREVIOUS FUNCTIONAL STATUS/SOCIAL/FAMILY SUPPORTS:: Sarita lives in [place], [place] with her boyfriend. She has five year old daughter that lives with her biological father and she has visitations. 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 She states she is indepedent with ADL's and transportation. CURRENT FUNCTIONAL STATUS:: Sarita is lying in bed she has a blanket wrapped around her head. She states her Migraine has not improved she does not feel she has ever had one this bad. She states that nothing has made it better including the IV dilaudid. She has questions related to care including if she is going to have an MRI.CM explained there is not one currently ordered. She states I just want to know what is wrong with me. ADVANCE DIRECTIVES:: None on file she is unable to complete today. Has patient been provided with information about the portal?: Yes Did the patient sign up for the portal?: No (would like info) CODE STATUS:: Full Code INSURANCE COVERAGE / FINANCIAL ISSUES:: Medicaid CURRENT HOME/COMMUNITY SERVICES/EQUIPMENT:: None at this time PRIMARY CARE PHYSICIAN:: Beba Eduardo [facility] POTENTIAL DISCHARGE NEEDS:: Follow up appointment with primary care provider scheduled prior to discharge. PATIENT/FAMILY EDUCATION NEEDS:: Discharge education, follow up plan of care, limitations, ask me three education and self management. ANTICIPATED BARRIERS TO DISCHARGE:: None identified. TRANSPORTATION:: Via private car with boyfriend at time of discharge. PLAN:: Sarita will remian observation today no change is status. When she is medically ready for discharge she will return home with no anticipated services. CM provided informaiton related to signing up for portal when she is able to concentrate without headache. [facility].
[2018-06-30] MEDS: Diazepam 2 MG TAB PO (17:52)
[2018-07-01] MEDS: HYDROmorphone 2 MG/ML VIAL 0.5 MG IVP (04:22)
[2018-07-01] MEDS: Normal Saline Flush 10 ML SYR IVP ×3 (04:23→19:03)
[2018-07-01] MEDS: Normal Saline 1,000 ML 100 ML IV (04:23)
[2018-07-01 07:50] VITALS: BP 124/84; PULSE 68; RESP 17; TEMP 36.8; O2SAT 98
[2018-07-01] MEDS: buPROPion-XL 150 MG TABCR PO (09:04)
[2018-07-01] MEDS: Acetaminophen 325 MG TAB PO ×2 (09:05→19:14)
[2018-07-01] MEDS: Citalopram 10 MG TAB PO (09:05)
--- NOTE | 2018-07-01 12:03 | PHARADMIT ---
Admission Pharmacy Clinical Review status migraine (?? tension headache) Code Status Full Code Current Weight Wgt- 81.6 kg Renally Cleared and Narrow Therapeutic Index Meds CrCl~ 92 mL/min Meds-OK QTc Value / Action Taken na BP Control, Fever BP-124/84 Tmax- 37.1C Electrolytes reviewed Na-141 K+4.0 Mag-1.8 DVT Prophylaxis No (AGE-27 ??) Opiate Usage / Scheduled Bowel Regimen Ordered Yes Yes Plt/SCr for Heparin / Enoxaparin Plts- 248 SCr-0.79 INR for Warfarin na H/H stable, WBC/Bands H&H- 13.1/38.7 WBC- 19.57 Antibiotic appropriateness none Cultures and Sensitivities CSF-negative x 24 hrs Surgical ABX d/c within 24 hr na DM control / Insulin Dosing BG- 148 Heart Failure (Check EF%) (CLAYTON's, B-Block, Diuretics) none IV to PO Switch No Home Meds Reviewed Yes Home Meds Not Ordered Nexplanon. Zonegran, Comments
[2018-07-01 14:26] VITALS: BP 123/76; PULSE 78; RESP 16; TEMP 36.7; O2SAT 97
[2018-07-01] MEDS: Diazepam 2 MG TAB PO (14:27)
--- NOTE | 2018-07-01 15:15 | DI.MRI_ITS ---
SYMPTOMS/DIAGNOSIS: STATUS MIGRAINE, INTRACTABLE HEADACHE MRA OF THE [place] OF [place]: A 3D taey-ig-heonar study was performed. There is no evidence of vascular occlusion or significant stenosis. No aneurysm is identified. IMPRESSION: Negative MRA of the [place] of [place]. MRI OF THE BRAIN: Comparison is made with a head CT dated May,. T2 sagittal, T1, T2, FLAIR, diffusion and gradient-echo axial sequences were performed. No intracranial hemorrhage, mass or infarct is seen. The ventricles are normal in size. There is normal silverio-white matter differentiation. No abnormal areas of restricted diffusion are seen. The vascular flow voids appear intact. The orbits, sinuses, pituitary and mastoid air cells are unremarkable. IMPRESSION: Negative MRI of the brain.
--- NOTE | 2018-07-01 15:49 | PDOC.CMPRO ---
- If Service Date Differs Date of service: 07/01/18 Time of Service: 15:49 Care Management Progress Note S/O: CM met with patient at the bedside she continues to be symptomatic of her headache. Planned MRI today. She will discharge home when medically ready. Anticipate no services needed at time of discharge. A:Sarita is a 27 year old female admitted with migraine with a history of chronic migraines. P:Sarita will remains observation she will need to change to inpatient if she continues to need hospitalization. She will have an MRI today she continues to receive pain management for her headache. When she is medically ready for discharge she will return home with no anticipated services. CM provided information related to signing up for portal when she is able to concentrate without headache. CM to continue to provide support to patient ongoing discharge planning.
[2018-07-01 16:18] VITALS: BP 119/78; PULSE 76; RESP 17; TEMP 36.7; O2SAT 97
--- NOTE | 2018-07-01 19:01 | PGE_ITS ---
Date of Service Date of service: 07/01/18 Time of Service: 19:15 Assessment and Plan (1) Migraine headache: Current visit: Yes Status: Chronic Persistent headache, 2 weeks in duration. Other than a persistent leukocytosis, no other evidence of acute pathology. No neurological deficits noted by exam. The patient reports that this pain is different than her typical migraines, and indeed by history and exam could be more typical of a tension headache. Continue antiemetics, and try to avoid opiates for pain control for possible. Initiated muscle relaxer in the form of Carisoprodol on a standing basis, with as needed Valium. Also significant leukocytosis, but without nuchal rigidity and LP studies that appear completely normal. Further check with chest x-ray and urinalysis also normal. due to persistent symptoms consider MRI today. (2) Depression: Current visit: Yes Status: Chronic Prior history of severe depression with suicidality. She denies any suicidality at this time. Will continue current medication regimen consisting of SSRI, and bupropion. Subjective Interval history since last seen: 27-year-old woman with past medical history significant for chronic migraines on suppressive therapy, obesity, and depression admitted from [facility] emergency department on 06/29/2018 with ongoing headaches. Ms. Virgen initially presented to the emergency department on 06/28 with reported headache that is been ongoing for 2 weeks. She received IV fluids, IV pain medications, as well as an occipital block with Marcaine. Despite these measures she did not have relief of her symptoms, and presented back to the emergency department on the day of admission complaining of severe headaches. The patient's neurologic exam, lab work, and imaging of the head were all essentially negative, with the exception of a leukocytosis with a white count of 22,000. She underwent a successful lumbar puncture which produced clear fluid, with study that were essentially unremarkable. Despite receiving IV steroids, Benadryl, and opiate pain medications her symptoms were not changed, and she was referred for admission. This morning the patient reports continued nausea and headaches that are essentially unchanged. She seemed to locate the back of her neck and occiput as the site of origin for her pain, which spread across her head and to the front. Owing to her significant and unchanged leukocytosis a chest x-ray and urinalysis were checked, both unremarkable and without evidence of infection. She reports continued pain this morning. No other events reported. She remains afebrile. Exam Narrative Exam Narrative: General: Patient appears comfortable, AAOX3, NAD Neck: Supple CV: Regular, nontachycardic, S1S2, No rubs, murmurs, or gallops. Pulmonary: Clear to auscultation bilaterally, no crackles, wheezing, or rhonchi Abdomen: + Bowel Sounds, soft, nontender, nondistended, obese in contour. Vascular: No lower extremity edema Neurologic: CN II-XII grossly intact. No focal deficits. Musculoskeletal: Pain with palpation of the neck, deltoids, and occiput area. Psych: Normal mood and affect. Objective Objective Clinical Data: Vital Signs Temperature 36.7 C 07/01/18 16:18 Temperature Source Tympanic 07/01/18 16:18 Pulse 76 07/01/18 16:18 Pulse Rhythm Regular 07/01/18 09:11 Respiratory Rate 17 07/01/18 16:18 Respiratory Effort 07/01/18 09:11 Respiratory Depth Normal 07/01/18 09:11 Respiratory Pattern Normal 07/01/18 09:11 Blood Pressure 119/78 07/01/18 16:18 Blood Pressure Mean 71 06/29/18 19:05 Blood Pressure Position Sitting 06/29/18 14:53 Pulse Oximetry 97 07/01/18 16:18 Oxygen Delivery Method Room Air 07/01/18 16:18 Oxygen Flow Rate 0 07/01/18 16:18 Pain Level 8 07/01/18 14:27 Intake & Output 06/30/18 07/01/18 07/01/18 23:59 11:59 23:59 Intake Total 1553.333 / 4485.000 1416.667 / 1416.667 Balance 1553.333 / 3560.000 1416.667 / 1416.667 Intake: IV 1073.333 / 2995.000 926.667 / 926.667 Oral 480 / 1490 490 / 490 Other: Urine Appearance Clear Comment pt up to void independantly urine not seen at this time pt up ad nickolas to void Voiding Methods Toilet Toilet Toilet Laboratory Results WBC 19.57 k/cumm (4.4-10.8) H 06/30/18 07:35 RBC 4.12 m/cumm (4.00-5.20) 06/30/18 07:35 Hgb 13.1 g/dL (12.0-15.5) 06/30/18 07:35 Hct 38.7 % (36.0-46.0) 06/30/18 07:35 MCV 93.9 fL (80-95) D 06/30/18 07:35 MCH 31.8 pg (27.0-33.0) 06/30/18 07:35 MCHC 33.9 g/dL (32.0-36.0) 06/30/18 07:35 RDW 12.8 % (11.7-14.6) 06/30/18 07:35 Plt Count 248 x1000/uL (130-400) 06/30/18 07:35 MPV 10.5 fL (8.0-11.0) 06/30/18 07:35 Immature Gran % 0.5 06/30/18 07:35 Neutrophils % 82.5 06/30/18 07:35 Lymphocytes % 9.1 06/30/18 07:35 Monocytes % 7.2 06/30/18 07:35 Eosinophils % 0.6 06/30/18 07:35 Basophils % 0.1 06/30/18 07:35 Absolute Neutrophils 16.15 k/cumm (1.2-6.7) H 06/30/18 07:35 Absolute Lymphocytes 1.78 k/cumm (1.2-3.4) 06/30/18 07:35 Absolute Monocytes 1.41 k/cumm (0.11-0.7) H 06/30/18 07:35 Absolute Eosinophils 0.12 k/cumm (0.0-0.7) 06/30/18 07:35 Absolute Basophils 0.02 k/cumm (0.0-0.2) 06/30/18 07:35 Xanthochromia Absent 06/29/18 19:40 Sodium 141 mmol/L (136-145) 06/30/18 07:35 Potassium 4.0 mmol/L (3.5-5.1) 06/30/18 07:35 Chloride 107 mmol/L (98-107) 06/30/18 07:35 Carbon Dioxide 23.7 mmol/L (21.0-32.0) 06/30/18 07:35 Anion Gap 10.3 mmol/L (3-11) 06/30/18 07:35 BUN 9 mg/dL (7-18) 06/30/18 07:35 Creatinine 0.79 mg/dL (0.55-1.02) 06/30/18 07:35 Estimated GFR/1.73 m2 >= 60.00 (mL/min/1.73m2) 06/30/18 07:35 Glucose 148 mg/dL (70-100) H 06/30/18 07:35 Calcium 8.6 mg/dL (8.5-10.1) 06/30/18 07:35 Magnesium 1.8 mg/dL (1.8-2.4) 06/29/18 15:20 Total Bilirubin 0.3 mg/dL (0.2-1.0) 06/29/18 15:20 AST 16 U/L (15-37) 06/29/18 15:20 ALT 46 U/L (12-78) 06/29/18 15:20 Alkaline Phosphatase 71 U/L (46-116) 06/29/18 15:20 Total Protein 7.9 g/dL (6.4-8.2) 06/29/18 15:20 Albumin 3.8 g/dL (3.4-5.0) 06/29/18 15:20 Urine Color Yellow (Yellow) 06/30/18 11:36 Urine Clarity Clear 06/30/18 11:36 Urine pH 7.5 (5-8) 06/30/18 11:36 Ur Specific [place] 1.015 (1.005-1.025) 06/30/18 11:36 Urine Protein Negative mg/dL (Negative) 06/30/18 11:36 Urine Ketones Negative mg/dL (Negative) 06/30/18 11:36 Urine Blood Negative (Negative) 06/30/18 11:36 Urine Nitrite Negative (Negative) 06/30/18 11:36 Urine Bilirubin Negative (Negative) 06/30/18 11:36 Urine Urobilinogen 0.2 EU/dL (Up TO 0.2) 06/30/18 11:36 Ur Leukocyte Esterase Negative (Negative) 06/30/18 11:36 Urine Glucose Negative mg/dL (Negative) 06/30/18 11:36 Urine HCG, Qual Negative 06/30/18 11:36 Fluid Source Cancelled 06/29/18 19:40 Fluid Color Cancelled 06/29/18 19:40 Fluid Appearance Cancelled 06/29/18 19:40 Fluid WBC Cancelled 06/29/18 19:40 Fluid Mononuclear Cell Cancelled 06/29/18 19:40 Fl Polymorphonucl Cell Cancelled 06/29/18 19:40 Fluid Other Cells Cancelled 06/29/18 19:40 CSF Tube Number 1 06/29/18 19:40 CSF Color Colorless 06/29/18 19:40 CSF Clarity Clear 06/29/18 19:40 CSF WBC 0 /mm3 (0-5) 06/29/18 19:40 CSF RBC 37 /mm3 (0-5) H 06/29/18 19:40 CSF RBC (1) Not Applicable 06/29/18 19:40 CSF Diff Comment Not Applicable 06/29/18 19:40 CSF Glucose 104 mg/dL (40-70) H 06/29/18 19:40 CSF Total Protein 50 mg/dL (15-45) H 06/29/18 19:40 Path Cons Comment Cancelled 06/29/18 19:40
[2018-07-02] MEDS: Diazepam 2 MG TAB PO (03:49)
[2018-07-02 04:00] VITALS: BP 115/70; PULSE 66; RESP 16; TEMP 37.2; O2SAT 98
[2018-07-02] MEDS: Citalopram 10 MG TAB PO (09:01)
[2018-07-02] MEDS: Acetaminophen 325 MG TAB PO (09:01)
[2018-07-02] MEDS: buPROPion-XL 150 MG TABCR PO (09:01)
[2018-07-02 09:22] VITALS: BP 121/76; PULSE 80; RESP 16; TEMP 37.4; O2SAT 95
[2018-07-02 11:36] LABS: Abs Immature Grans 0.09 k/cumm (0.0-0.09); Absolute Basophil Count 0.06 k/cumm (0.0-0.2); Absolute Eosinophil Count 0.19 k/cumm (0.0-0.7); Absolute Lymphocyte Count 2.83 k/cumm (1.2-3.4); Absolute Neutrophil Count 10.45 k/cumm (1.2-6.7); Basophils % 0.4; Eosinophils % 1.3; HCT 39.4 % (36.0-46.0); HGB 13.8 g/dL (12.0-15.5); Immature Grans % 0.6; Lymphocytes % 19.1; Mean Corpuscular Hemoglobin 32.3 pg (27.0-33.0); Mean Corpuscular Volume 92.3 fL (80-95); Mean Platelet Volume 9.3 fL (8.0-11.0); Monocytes % 8.1; Neutrophils % 70.5; Platelet Count 254 x1000/uL (130-400); RBC 4.27 m/cumm (4.00-5.20); RBC Distribution Width 12.7 % (11.7-14.6); White Blood Cell Count 14.82 k/cumm (4.4-10.8)
--- NOTE | 2018-07-02 11:39 | W.PM.DS.N ---
Date of service: 07/02/18 Time of Service: 11:39 DS: Diagnosis Discharge Diagnosis (1) Migraine headache: Status: Chronic (2) Depression: Status: Chronic Discharge Plan Disposition Patient Disposition: HOME Condition: Stable Discharge Details Reason For Visit: STATUS MIGRAINE Admit Date/Time: 06/29/18 21:11 Admit Provider: Pedro Pablo Medina Attending Provider: Pedro Pablo Medina Primary Care Provider: DAVID CAI Hospital Course Hospital Course: CC: Intractable Headache HPI: 27-year-old woman with past medical history significant for chronic migraines on suppressive therapy, obesity, and depression admitted from [facility] emergency department on 06/29/2018 with ongoing headaches. Ms. Virgen initially presented to the emergency department on 06/28 with reported headache that is been ongoing for 2 weeks. She received IV fluids, IV pain medications, as well as an occipital block with Marcaine. Despite these measures she did not have relief of her symptoms, and presented back to the emergency department on the day of admission complaining of severe headaches. The patient's neurologic exam, lab work, and imaging of the head with a CT Scan were all essentially negative, with the exception of a leukocytosis with a white count of 22,000. She underwent a successful lumbar puncture which produced clear fluid, with study that were essentially unremarkable and cultures that were negative. Despite receiving IV steroids, Benadryl, and opiate pain medications her symptoms were not changed, and she was referred for admission. This morning the patient reports vast improvement and near resolution of her headaches. Her WBC has improved. Chest x-ray, urinalysis, and brain MRI were all unremarkable. She remains afebrile. Hospital Course: (1) Migraine headache: Persistent headache, 2 weeks in duration. Other than a persistent leukocytosis, no other evidence of acute pathology. No neurological deficits noted by exam. The patient reported that this pain was different than her typical migraines, and indeed by history and exam could be more typical of a tension headache. She was initiated on muscle relaxer in the form of Carisoprodol on a standing basis, with as needed Valium. Today she reports improvement to near resolution of her pain. Also significant leukocytosis, but without nuchal rigidity and LP studies that appear completely normal - CSF cultures negative as well. Further check with chest x-ray and urinalysis also normal. Due to persistent symptoms MRI was obtained and negative. With resolution of her headache the patient's white blood count has decreased - likely reactive. She appears safe for discharge without any red flags. (2) Depression: rior history of severe depression with suicidality. She denies any suicidality at this time. Will continue current medication regimen consisting of SSRI, and bupropion. Home Meds and New Rx's Prescriptions: New carisoprodol [Soma] 350 mg Tablet 350 mg PO QID Qty: 16 RF: 0 tramadol 50 mg tablet 50 mg PO QID PRN (Reason: pain) Qty: 16 RF: 0 Continued bupropion HCl 150 MG tablet extended release 12 hr 150 mg PO DAILY RF: 0 Tension Headache 500-65 mg Tablet 2 tab PO PRN PRNRF: 0 citalopram 40 MG tablet 1 tab PO DAILY RF: 0 zonisamide [Zonegran] 100 MG capsule 1 cap PO DAILY RF: 0 Nexplanon 68 MG implant 1 unit DAILY RF: 0 ibuprofen 200 MG tablet 1 tab PO PRN PRNRF: 0 ondansetron 4 MG tablet,disintegrating 4 mg PO Q8H PRN (Reason: Nausea) Qty: 6 RF: 0 Discharge Instructions Instructions: Migraine Headache (DC) Additional Instructions: Please see your primary doctor in 2 weeks Stand Alone Forms: Nursing Discharge Form Referrals: DAVID CAI [Primary Care Provider] - 07/16/18 8:35 am Activity:: No Strenuous Activity Equipment/Supplies:: No Equipment Needed Diet:: Carb Counting Discharge Orders Discharge Orders: Discharge Order (Routine); Ordered 07/02/18 Ordered By: Wilbur Baker Exam Narrative Exam Narrative: General: Patient appears comfortable, AAOX3, NAD Neck: Supple CV: Regular, nontachycardic, S1S2, No rubs, murmurs, or gallops. Pulmonary: Clear to auscultation bilaterally, no crackles, wheezing, or rhonchi Abdomen: + Bowel Sounds, soft, nontender, nondistended, obese in contour. Vascular: No lower extremity edema Neurologic: CN II-XII grossly intact. No focal deficits. Musculoskeletal: Pain with palpation of the neck, deltoids, and occiput area - improved through hospitalization. Psych: Normal mood and affect. DS: Data Vitals/I&O Vitals and I&O: Vital Signs Temperature 37.4 C 07/02/18 09:22 Temperature Source Tympanic 07/02/18 09:22 Pulse 80 07/02/18 09:22 Pulse Rhythm Regular 07/02/18 01:00 Respiratory Rate 16 07/02/18 09:22 Respiratory Effort 07/02/18 01:00 Respiratory Depth Normal 07/02/18 01:00 Respiratory Pattern Normal 07/02/18 01:00 Blood Pressure 121/76 07/02/18 09:22 Blood Pressure Mean 71 06/29/18 19:05 Blood Pressure Position Sitting 06/29/18 14:53 Pulse Oximetry 95 07/02/18 09:22 Oxygen Delivery Method Room Air 07/02/18 09:22 Oxygen Flow Rate 0 07/02/18 09:22 Pain Level 8 07/02/18 09:22 Intake & Output 07/01/18 07/01/18 07/02/18 11:59 23:59 11:59 Intake Total 1416.667 / 1416.667 100 / 100 Output Total 800 / 800 Balance 1416.667 / 616.667 -800 / 616.667 100 / 100 Intake: IV 926.667 / 926.667 Oral 490 / 490 100 / 100 Output: Urine 800 / 800 Other: Urine Color Yellow Yellow Urine Appearance Clear Comment pt up to void independantly urine not seen at this time pt up ad nickolas to void VOIDS INDEP AND FLUSHES Voiding Methods Toilet Toilet Toilet Completed studies during hospitalization [Text1]: Exam(s) a CT:CT head wo SYMPTOM/DIAGNOSIS: UNRELIEVED HEADACHE NONCONTRAST HEAD CT: No intracranial hemorrhage, mass or infarct is seen. The ventricles are normal in size. There is no evidence of skull fracture or sinus opacification. IMPRESSION: Negative head CT. Exam(s) a RAD:XR chest 2V PA & lateral SYMPTOM/DIAGNOSIS: LEUKOCYTOSIS, HEADACHE, ? PNEUMONIA PA AND LATERAL CHEST: There are no prior comparison exams. The lungs are poorly inflated on both views but appear clear. The heart size is normal. IMPRESSION: No acute abnormality. Exam(s) 07/01/2018 a MRI:MR angio brain wo a MRI:MR brain wo SYMPTOMS/DIAGNOSIS: STATUS MIGRAINE, INTRACTABLE HEADACHE MRA OF [place]: A 3D chno-bu-btxbsl study was performed. There is no evidence of vascular occlusion or significant stenosis. No aneurysm is identified. IMPRESSION: Negative MRA of the [place]. MRI OF THE BRAIN: Comparison is made with a head CT dated May,. T2 sagittal, T1, T2, FLAIR, diffusion and gradient-echo axial sequences were performed. No intracranial hemorrhage, mass or infarct is seen. The ventricles are normal in size. There is normal silverio-white matter differentiation. No abnormal areas of restricted diffusion are seen. The vascular flow voids appear intact. The orbits, sinuses, pituitary and mastoid air cells are unremarkable. IMPRESSION: Negative MRI of the brain. Labs on day of discharge: Labs from last 24 hours 07/02/18 11:30 WBC 14.82 H RBC 4.27 Hgb 13.8 Hct 39.4 MCV 92.3 MCH 32.3 MCHC 35.0 RDW 12.7 Plt Count 254 MPV 9.3 Immature Gran % 0.6 Neutrophils % 70.5 Lymphocytes % 19.1 Monocytes % 8.1 Eosinophils % 1.3 Basophils % 0.4 Absolute Neutrophils 10.45 H Absolute Lymphocytes 2.83 Absolute Monocytes 1.20 H Absolute Eosinophils 0.19 Absolute Basophils 0.06 Preliminary micro results at discharge 06/29/18 19:11 Body Fluid Culture - Preliminary Cerebrospinal Fluid Fluid Culture Preliminary 07/02/18-923 Day 1 Result NO GROWTH 24 HOURS Day 2 Result NO GROWTH 48 HOURS Gram Stain Final 06/29/18-2129 GRAM STAIN Gram Stain performed on Cytospin concentrated smear No Bacteria Seen No White Blood Cells [facility] Medical History Migraine headache (Chronic) Suicidal ideation (Resolved) Depression (Chronic ~01/2018) Social History Smoking/Tobacco Use Status: Current every day History History Para Hx # Term Pregnancies 1 Multiple births Hx # Pregnancies Ectopic pregnancies AB induced Hx Number of Living Children AB spontaneous
--- NOTE | 2018-07-02 11:45 | DSE_ITS ---
Date of service: 07/02/18 Time of Service: 11:39 DS: Diagnosis Discharge Diagnosis (1) Migraine headache: Status: Chronic (2) Depression: Status: Chronic Discharge Plan Disposition Patient Disposition: HOME Condition: Stable Discharge Details Reason For Visit: STATUS MIGRAINE Admit Date/Time: 06/29/18 21:11 Admit Provider: Pedro Pablo Medina Attending Provider: Pedro Pablo Medina Primary Care Provider: DAVID CAI Hospital Course Hospital Course: CC: Intractable Headache HPI: 27-year-old woman with past medical history significant for chronic migraines on suppressive therapy, obesity, and depression admitted from [facility] emergency department on 06/29/2018 with ongoing headaches. Ms. Virgen initially presented to the emergency department on 06/28 with reported headache that is been ongoing for 2 weeks. She received IV fluids, IV pain medications, as well as an occipital block with Marcaine. Despite these measures she did not have relief of her symptoms, and presented back to the emergency department on the day of admission complaining of severe headaches. The patient's neurologic exam, lab work, and imaging of the head with a CT Scan were all essentially negative, with the exception of a leukocytosis with a white count of 22,000. She underwent a successful lumbar puncture which produced clear fluid, with study that were essentially unremarkable and cultures that were negative. Despite receiving IV steroids, Benadryl, and opiate pain medications her symptoms were not changed, and she was referred for admission. This morning the patient reports vast improvement and near resolution of her headaches. Her WBC has improved. Chest x-ray, urinalysis, and brain MRI were all unremarkable. She remains afebrile. Hospital Course: (1) Migraine headache: Persistent headache, 2 weeks in duration. Other than a persistent leukocytosis, no other evidence of acute pathology. No neurological deficits noted by exam. The patient reported that this pain was different than her typical migraines, and indeed by history and exam could be more typical of a tension headache. She was initiated on muscle relaxer in the form of Carisoprodol on a standing basis, with as needed Valium. Today she reports improvement to near resolution of her pain. Also significant leukocytosis, but without nuchal rigidity and LP studies that appear completely normal - CSF cultures negative as well. Further check with chest x-ray and urinalysis also normal. Due to persistent symptoms MRI was obtained and negative. With resolution of her headache the patient's white blood count has decreased - likely reactive. She appears safe for discharge without any red flags. (2) Depression: rior history of severe depression with suicidality. She denies any suicidality at this time. Will continue current medication regimen consisting of SSRI, and bupropion. Home Meds and New Rx's Prescriptions: New carisoprodol [Soma] 350 mg Tablet 350 mg PO QID Qty: 16 RF: 0 tramadol 50 mg tablet 50 mg PO QID PRN (Reason: pain) Qty: 16 RF: 0 Continued bupropion HCl 150 MG tablet extended release 12 hr 150 mg PO DAILY RF: 0 Tension Headache 500-65 mg Tablet 2 tab PO PRN PRNRF: 0 citalopram 40 MG tablet 1 tab PO DAILY RF: 0 zonisamide [Zonegran] 100 MG capsule 1 cap PO DAILY RF: 0 Nexplanon 68 MG implant 1 unit DAILY RF: 0 ibuprofen 200 MG tablet 1 tab PO PRN PRNRF: 0 ondansetron 4 MG tablet,disintegrating 4 mg PO Q8H PRN (Reason: Nausea) Qty: 6 RF: 0 Discharge Instructions Instructions: Migraine Headache (DC) Additional Instructions: Please see your primary doctor in 2 weeks Stand Alone Forms: Nursing Discharge Form Referrals: DAVID CAI [Primary Care Provider] - 07/16/18 8:35 am Activity:: No Strenuous Activity Equipment/Supplies:: No Equipment Needed Diet:: Carb Counting Discharge Orders Discharge Orders: Discharge Order (Routine); Ordered 07/02/18 Ordered By: Wilbur Baker Exam Narrative Exam Narrative: General: Patient appears comfortable, AAOX3, NAD Neck: Supple CV: Regular, nontachycardic, S1S2, No rubs, murmurs, or gallops. Pulmonary: Clear to auscultation bilaterally, no crackles, wheezing, or rhonchi Abdomen: + Bowel Sounds, soft, nontender, nondistended, obese in contour. Vascular: No lower extremity edema Neurologic: CN II-XII grossly intact. No focal deficits. Musculoskeletal: Pain with palpation of the neck, deltoids, and occiput area - i mproved through hospitalization. Psych: Normal mood and affect. DS: Data Vitals/I&O Vitals and I&O: Vital Signs Temperature 37.4 C 07/02/18 09:22 Temperature Source Tympanic 07/02/18 09:22 Pulse 80 07/02/18 09:22 Pulse Rhythm Regular 07/02/18 01:00 Respiratory Rate 16 07/02/18 09:22 Respiratory Effort 07/02/18 01:00 Respiratory Depth Normal 07/02/18 01:00 Respiratory Pattern Normal 07/02/18 01:00 Blood Pressure 121/76 07/02/18 09:22 Blood Pressure Mean 71 06/29/18 19:05 Blood Pressure Position Sitting 06/29/18 14:53 Pulse Oximetry 95 07/02/18 09:22 Oxygen Delivery Method Room Air 07/02/18 09:22 Oxygen Flow Rate 0 07/02/18 09:22 Pain Level 8 07/02/18 09:22 Intake & Output 07/01/18 07/01/18 07/02/18 11:59 23:59 11:59 Intake Total 1416.667 / 1416.667 100 / 100 Output Total 800 / 800 Balance 1416.667 / 616.667 -800 / 616.667 100 / 100 Intake: IV 926.667 / 926.667 Oral 490 / 490 100 / 100 Output: Urine 800 / 800 Other: Urine Color Yellow Yellow Urine Appearance Clear Comment pt up to void independantly urine not seen at this time pt up ad nickolas to void VOIDS INDEP AND FLUSHES Voiding Methods Toilet Toilet Toilet Completed studies during hospitalization [Text1]: Exam(s) a CT:CT head wo SYMPTOM/DIAGNOSIS: UNRELIEVED HEADACHE NONCONTRAST HEAD CT: No intracranial hemorrhage, mass or infarct is seen. The ventricles are normal in size. There is no evidence of skull fracture or sinus opacification. IMPRESSION: Negative head CT. Exam(s) a RAD:XR chest 2V PA & lateral SYMPTOM/DIAGNOSIS: LEUKOCYTOSIS, HEADACHE, ? PNEUMONIA PA AND LATERAL CHEST: There are no prior comparison exams. The lungs are poorly inflated on both view s but appear clear. The heart size is normal. IMPRESSION: No acute abnormality. Exam(s) 07/01/2018 a MRI:MR angio brain wo a MRI:MR brain wo SYMPTOMS/DIAGNOSIS: STATUS MIGRAINE, INTRACTABLE HEADACHE MRA OF THE [place]: A 3D aunn-ne-hugteu study was performed. There is no evidence of vascular occlusion or significant stenosis. No aneurysm is identified. IMPRESSION: Negative MRA of the [place]. MRI OF THE BRAIN: Comparison is made with a head CT dated May,. T2 sagittal, T1, T2, FLAIR, diffusion and gradient-echo axial sequences were performed. No intracranial hemorrhage, mass or infarct is seen. The ventricles are normal in size. There is normal silverio-white matter differentiation. No abnormal areas of restricted diffusion are seen. The vascular flow voids appear intact. The orbits, sinuses, pituitary and mastoid air cells are unremarkable. IMPRESSION: Negative MRI of the brain. Labs on day of discharge: Labs from last 24 hours 07/02/18 11:30 WBC 14.82 H RBC 4.27 Hgb 13.8 Hct 39.4 MCV 92.3 MCH 32.3 MCHC 35.0 RDW 12.7 Plt Count 254 MPV 9.3 Immature Gran % 0.6 Neutrophils % 70.5 Lymphocytes % 19.1 Monocytes % 8.1 Eosinophils % 1.3 Basophils % 0.4 Absolute Neutrophils 10.45 H Absolute Lymphocytes 2.83 Absolute Monocytes 1.20 H Absolute Eosinophils 0.19 Absolute Basophils 0.06 Preliminary micro results at discharge 06/29/18 19:11 Body Fluid Culture - Preliminary Cerebrospinal Fluid Fluid Culture Preliminary 07/02/18-923 Day 1 Result NO GROWTH 24 HOURS Day 2 Result NO GROWTH 48 HOURS Gram Stain Final 06/29/18-2129 GRAM STAIN Gram Stain performed on Cytospin concentrated smear No Bacteria Seen No White Blood Cells [facility] Medical History Migraine headache (Chronic) Suicidal ideation (Resolved) Depression (Chronic ~01/2018) Social History Smoking/Tobacco Use Status: Current every day History History Para Hx # Term Pregnancies 1 Multiple births Hx # Pregnancies Ectopic pregnancies AB induced Hx Number of Living Children AB spontaneous
--- NOTE | 2018-07-02 12:35 | PDOC.CMDIS ---
- If Service Date Differs Date of service: 07/02/18 Time of Service: 12:35 LACE Index Scoring Tool - Questions: Length of Stay (in days): 3 Acuity (Admit via E.D.?): Yes E.D. Visits: 3 - Answers: Total Score: 9 Risk of Readmission: Low Risk Care Management Discharge Reason for Hospitalization: Migraine Discharge Plan: Sarita will be discharged home today with follow up primary care scheduled for 07/16/2018. She has a plan to manage pain at time of discharge. She will transport home with her friend at time of discharge. Patient/Family Education Needs: Discharge plan, limitations and follow up plan of care including ask me three education and self management.
== END 2018-07-02 13:11 | disposition home or self-care (01) | DRG 103 ==
LOC: ER 21:15 → MS 07-01 13:37
PROVIDERS: Admitting Provider Family Medicine; Emergency Provider Emergency Medicine; PCP Nurse Practitioner Family; Visit Provider Internal Medicine
DX: G43.909 Migraine, unspecified, not intractable, without status migrainosus (principal); R11.0 Nausea; F32.9 Major depressive disorder, single episode, unspecified; F17.210 Nicotine dependence, cigarettes, uncomplicated; D72.829 Elevated white blood cell count, unspecified
CPT/HCPCS: 36415; 62270; 70544; 80048; 80053; 82945; 89050; 89051; 96361; 96374; 96375; 99219; 99232; 99239; 99285; 70450; 70551; 71046; 81003; 81025; 81373; 83735; 84157; 85025; 87070; 87205; 99225; G0378; J1100; J1200; J1885; J2060; J2405

== ENCOUNTER 2018-07-29 15:52 | Emergency (ER) | payer MEDICAID, SELFPAY ==
[2018-07-29 15:59] VITALS: BP 128/73; PULSE 79; RESP 16; TEMP 36.5; O2SAT 99
[2018-07-29 16:23] LABS: Bilirubin Negative (Negative); Blood Negative (Negative); Clarity Clear; Glucose Negative (Negative); Ketones Negative (Negative); Leukocyte Esterase Small (Negative); Nitrite Negative (Negative); Urobilinogen 0.2 EU/dL (Up TO 0.2)
[2018-07-29 16:40] LABS: Bacteria Rare HPF (Negative); C & S Indicated? No; Casts Negative LPF (Negative); Crystals Negative HPF (Negative); Epithelial Cells Rare HPF (Negative); Mucus Negative (Negative); Other Cells Negative (Negative); RBC Negative (0-2)
[2018-07-29 16:52] LABS: *AMPHETAMINES SCREEN URINE Negative (Negative); *BARBITURATES SCREEN URINE Negative (Negative); *BENZODIAZEPINES SCREEN URINE Negative (Negative); Cannabinoids THC Negative (Negative); Cocaine Screen,Urine Negative (Negative); METHADONE URINE SCREEN Negative (Negative); OPIATES URINE SCREEN Negative (Negative); Tricyclic Antidepressants Negative (Negative)
--- NOTE | 2018-07-29 17:06 | ED.GENADUL_ITS ---
Discharge Plan Disposition Patient Disposition: HOME Condition: Good Discharge Details Chief Complaint: PsychEval Clinical Impression: Depression Primary Care Provider: DAVID CAI ED Provider: Brayden Carter Home Meds and New Rx's Prescriptions: No Action bupropion HCl 150 MG tablet extended release 12 hr 150 mg PO DAILY RF: 0 Tension Headache 500-65 mg Tablet 2 tab PO PRN PRNRF: 0 tramadol 50 mg tablet 50 mg PO QID PRN (Reason: pain) Qty: 16 RF: 0 citalopram 40 MG tablet 1 tab PO DAILY RF: 0 zonisamide [Zonegran] 100 MG capsule 1 cap PO DAILY RF: 0 Nexplanon 68 MG implant 1 unit DAILY RF: 0 ibuprofen 200 MG tablet 1 tab PO PRN PRNRF: 0 ondansetron 4 MG tablet,disintegrating 4 mg PO Q8H PRN (Reason: Nausea) Qty: 6 RF: 0 Discharge Instructions Instructions: Depression (ED) Additional Instructions: Please follow-up with your mental health specialist, if you notice any return of your symptoms, or any thoughts of self-harm please return immediately for reevaluation. If you notice any worsening of your symptoms, or any new symptoms such as vomiting, diarrhea, fever, chills, shortness of breath, chest pain, numbness, weakness, or fainting , please return immediately to the emergency department for reevaluation. Please follow up with your primary care provider as soon as possible for reassessment and reevaluation. As always, it was a pleasure participating in your medical care today. Referrals: DAVID CAI [Primary Care Provider] - Medical Decision Making This is a very pleasant 27-year-old female who presents today for evaluation of depression. She was seen by her counselor on an outpatient basis today who recommended she come in for further evaluation. The patient felt that this was not necessary but heated the words of her counselor. Clinical history and HPI demonstrate that the patient has no complaints or desire to harm herself, kill herself, or end her life or someone else's. She does clearly demonstrate signs and symptoms concerning for depression. We did have mental health come and evaluate the patient, they do feel that she is not a candidate for admission but certainly does need outpatient counseling and gwot ia/ilo intelligence support. They feel that she is safe from mental health perspective for discharge, and I do agree with this. patient will be discharged home with close follow-up with her mental health advocates, and multiple support services. I have extensively reviewed the treatment plan and discharge instructions with the patient and their family. I have addressed all patient concerns at this time. The patient and family was made aware of what symptoms to monitor for that would warrant a return to the emergency department. Discussed the plan with the patient and family, they demonstrate verbal understanding and agreement with our assessment and plan at this time. HPI General Date/Time Provider Initiated Documentation: 07/29/18 16:09 . HPI Narrative: This is a very pleasant 27-year-old female who presents for evaluation for depression. Patient states that over the last few weeks she has been feeling slightly depressed, she has only been performing things that used to bring her jennifer. She denies any feelings of self-harm, or thoughts of suicide. She denies any homicidal ideations, auditory or visual hallucinations, or new medication changes. She was seen by her counselor today, who recommended that she come in for evaluation. She denies any history of self-harm or attempted suicide. She has a notable support structure at home. She denies any IV or illicit drug use, recent surgical history, or pertinent family history. No other complaints at this time Related Data Home Medications Medication Instructions Recorded Confirmed Nexplanon 1 unit DAILY 10/05/17 07/29/18 citalopram 1 tab PO DAILY 10/05/17 07/29/18 ibuprofen 1 tab PO PRN PRN 10/05/17 07/29/18 zonisamide [Zonegran] 1 cap PO DAILY 10/05/17 07/29/18 ondansetron 4 mg PO Q8H PRN #6 tab.rapdis 02/12/18 07/29/18 bupropion HCl 150 mg PO DAILY 02/18/18 07/29/18 Tension Headache 2 tab PO PRN PRN 06/28/18 07/29/18 tramadol 50 mg PO QID PRN #16 tab 07/02/18 07/29/18 Previous Rx's Medication Instructions Recorded ondansetron 4 mg PO Q8H PRN #6 tab.rapdis 02/12/18 tramadol 50 mg PO QID PRN #16 tab 07/02/18 Allergies Allergy/AdvReac Type Severity Reaction Status Date / Time metronidazole [From Flagyl] Allergy Severe Hives Unverified 07/29/18 16:02 vancomycin Allergy Severe Hives Unverified 07/29/18 16:02 adhesive tape Allergy Mild Hives Unverified 07/29/18 16:02 General Stated Complaint: PsychEval JAYE: 2 Review of Systems Review of Systems All systems reviewed & are unremarkable except as noted in HPI and below PFSH Social History Smoking/Tobacco Use Status: Current every day History History Para Hx # Term Pregnancies 1 Multiple births Hx # Pregnancies Ectopic pregnancies AB induced Hx Number of Living Children AB spontaneous Exam Narrative Exam Narrative: 1.Const: Well-nourished, Well-developed, appearing stated age 2.Eyes: PERRL, no conjunctival injection, and symmetrical lids. 3.ENT: Atraumatic external nose and ears. Moist MM. Neck: Symmetric, trachea midline, No thyromegaly. 4.CVS: +S1/S2, No murmurs or gallops. Peripheral pulses 2+ and equal in all extremities. Brisk capillary refill in all extremities. 5.RESP: Unlabored respiratory effort. Clear to auscultation bilaterally. No wheezes rales or rhonchi 6.GI: Soft, Nontender/Nondistended, No hepatosplenomegaly. No guarding or rebound. 7.MSK: Normocephalic/Atraumatic, Extremities w/o deformity or ttp No cyanosis or clubbing, Normal movement of all extremities 8.Skin: Warm, Dry. No rashes or lesions. 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 Sensation grossly intact, no focal neurologic deficits. 10.Psych: (AAO) x3. Appropriate mood and affect, the patient shows no sign of flat affect, and did not denies any homicidal or suicidal ideations. Course Vital Signs Temperature 36.5 C 07/29/18 15:59 Pulse 79 07/29/18 15:59 Respiratory Rate 16 07/29/18 15:59 Blood Pressure 128/73 07/29/18 15:59 Pulse Oximetry 99 07/29/18 15:59 Temperature 36.5 C 07/29/18 15:59 Temperature Source Skin 07/29/18 15:59 Pulse 79 07/29/18 15:59 Respiratory Rate 16 07/29/18 15:59 Respiratory Effort Non-Labored 07/29/18 15:59 Blood Pressure 128/73 07/29/18 15:59 Blood Pressure Position Sitting 07/29/18 15:59 Pulse Oximetry 99 07/29/18 15:59 Oxygen Delivery Method Room Air 07/29/18 15:59 Oxygen Flow Rate 0 07/29/18 15:59 Pain Level 6 07/29/18 15:59 Lab/Test Results Lab/Test Results: Laboratory Tests Range/Units 07/29/18 07/29/18 07/29/18 16:10 16:12 16:23 WBC RBC Hgb Hct MCV MCH MCHC RDW Plt Count MPV Abs Immat Gran (auto) Immature Gran % Neutrophils % Band Neutrophils % Lymphocytes % Atypical Lymphs % Monocytes % Eosinophils % Basophils % Absolute Neutrophils Absolute Lymphocytes Absolute Monocytes Absolute Eosinophils Absolute Basophils Metamyelocytes Myelocytes Promyelocytes Nucleated RBCs Differential Comment Other Cell Type RBC Morphology Polychromasia Hypochromasia Poikilocytosis Basophilic Stippling Anisocytosis Microcytosis Macrocytosis Spherocytes Target Cells Tear Drop Cells Ovalocytes Stomatocytes Lim-Turah Bodies Stephen Cells Acanthocytes (Spur) Schistocytes Sodium Cancelled Potassium Cancelled Chloride Cancelled Carbon Dioxide Cancelled Anion Gap Cancelled BUN Cancelled Creatinine Cancelled Estimated GFR/1.73 m2 Cancelled Glucose Cancelled Calcium Cancelled Total Bilirubin Cancelled AST Cancelled ALT Cancelled Alkaline Phosphatase Cancelled Total Protein Cancelled Albumin Cancelled TSH Cancelled Urine Color (Yellow) Yellow Urine Clarity Clear Urine pH (5-8) 7.0 Ur Specific Gray (1.005-1.025) 1.010 Urine Protein (Negative) mg/dL Negative Urine Ketones (Negative) mg/dL Negative Urine Blood (Negative) Negative Urine Nitrite (Negative) Negative Urine Bilirubin (Negative) Negative Urine Urobilinogen (Up TO 0.2) EU/dL 0.2 Ur Leukocyte Esterase (Negative) Small H Urine RBC (0-2) Negative Urine WBC (0-5) HPF 3-5 Ur Epithelial Cells (Negative) HPF Rare Urine Crystals (Negative) HPF Negative Urine Bacteria (Negative) HPF Rare Urine Casts (Negative) LPF Negative Urine Mucus (Negative) Negative Urine Other (Negative) Negative Ur Culture Indicated? No Urine Glucose (Negative) mg/dL Negative Salicylates Urine Opiates Screen (Negative) Negative Urine Methadone Screen (Negative) Negative Acetaminophen Ur Barbiturates Screen (Negative) Negative Ur Tricyclics Screen (Negative) Negative Ur Amphetamines Screen (Negative) Negative U Benzodiazepines Scrn (Negative) Negative Urine Cocaine Screen (Negative) Negative Ur THC Screen (Negative) Negative Range/Units 07/29/18 07/29/18 16:23 16:23 WBC Cancelled RBC Cancelled Hgb Cancelled Hct Cancelled MCV Cancelled MCH Cancelled MCHC Cancelled RDW Cancelled Plt Count Cancelled MPV Cancelled Abs Immat Gran (auto) Cancelled Immature Gran % Cancelled Neutrophils % Cancelled Band Neutrophils % Cancelled Lymphocytes % Cancelled Atypical Lymphs % Cancelled Monocytes % Cancelled Eosinophils % Cancelled Basophils % Cancelled Absolute Neutrophils Cancelled Absolute Lymphocytes Cancelled Absolute Monocytes Cancelled Absolute Eosinophils Cancelled Absolute Basophils Cancelled Metamyelocytes Cancelled Myelocytes Cancelled Promyelocytes Cancelled Nucleated RBCs Cancelled Differential Comment Cancelled Other Cell Type Cancelled RBC Morphology Cancelled Polychromasia Cancelled Hypochromasia Cancelled Poikilocytosis Cancelled Basophilic Stippling Cancelled Anisocytosis Cancelled Microcytosis Cancelled Macrocytosis Cancelled Spherocytes Cancelled Target Cells Cancelled Tear Drop Cells Cancelled Ovalocytes Cancelled Stomatocytes Cancelled Lim-Tur[place] Bodies Cancelled [place] Cells Cancelled Acanthocytes (Spur) Cancelled Schistocytes Cancelled Sodium Potassium Chloride Carbon Dioxide Anion Gap BUN Creatinine Estimated GFR/1.73 m2 Glucose Calcium Total Bilirubin AST ALT Alkaline Phosphatase Total Protein Albumin TSH Urine Color (Yellow) Urine Clarity Urine pH (5-8) Ur Specific Gray (1.005-1.025) Urine Protein (Negative) mg/dL Urine Ketones (Negative) mg/dL Urine Blood (Negative) Urine Nitrite (Negative) Urine Bilirubin (Negative) Urine Urobilinogen (Up TO 0.2) EU/dL Ur Leukocyte Esterase (Negative) Urine RBC (0-2) Urine WBC (0-5) HPF Ur Epithelial Cells (Negative) HPF Urine Crystals (Negative) HPF Urine Bacteria (Negative) HPF Urine Casts (Negative) LPF Urine Mucus (Negative) Urine Other (Negative) Ur Culture Indicated? Urine Glucose (Negative) mg/dL Salicylates Cancelled Urine Opiates Screen (Negative) Urine Methadone Screen (Negative) Acetaminophen Cancelled Ur Barbiturates Screen (Negative) Ur Tricyclics Screen (Negative) Ur Amphetamines Screen (Negative) U Benzodiazepines Scrn (Negative) Urine Cocaine Screen (Negative) Ur THC Screen (Negative) POC- Test(urine) Negative
--- NOTE | 2018-07-29 17:06 | PDOC.MHCN ---
Date of service: 07/29/18 Time of Service: 17:07 Mental Health Crisis Note Presenting Issue How did you arrive at the ED and why did you come: She arrived at the emergency room with her boyfriend following a counseling appointment she had. Her counselor thought she was suicidal when the patient discussed her depression. Precipitating Factors Sarita has recently been hospitalized for psychiatric purposes. She reports the hospitalization helped her out a lot. She denies being suicidal and expressed some frustration with her counselor's reaction. She denies a history of cutting and past suicide attempts. 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 She agreed to keep her options open and signed opening paperwork with [facility] so questions of medication effectiveness and/or the option of a new counselor can be explored collaboratively between her providers now and [facility] in the future if depression continues to escalate. Disposition BEHAVIOR: Cooperative, thorough, insightful EYE CONTACT: Good MOOD: depressed AFFECT: constricted APPETITE: no issues reported SLEEP(trouble falling/staying asleep: none reported Plan Sarita will be released to herself and return home with her boyfriend and child. She will discuss the incident with the counselor that recommended her for inpatient treatment. She is open under [facility] and will call for assistance if she feels her depression is getting worse. Her boyfriend has also agreed to call the emergency line as a support person if needed also. This blog writer will follow up with her in one week to discuss the counseling option. She also will discuss her medications with her PCP and included in [facility] outreach will be a referral to an PLATFORM STAPLER if needed .
--- NOTE | 2018-07-29 17:21 | PDOC.MHCN_ITS ---
Date of service: 07/29/18 Time of Service: 17:07 Mental Health Crisis Note Presenting Issue How did you arrive at the ED and why did you come: She arrived at the emergency room with her boyfriend following a counseling appointment she had. Her counselor thought she was suicidal when the patient discussed her depression. Precipitating Factors Sarita has recently been hospitalized for psychiatric purposes. She reports the hospitalization helped her out a lot. She denies being suicidal and expressed some frustration with her counselor's reaction. She denies a history of cutting and past suicide attempts. 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 She agreed to keep her options open and signed opening paperwork with [facility] so questions of medication effectiveness and/or the option of a new counselor can be explored collaboratively between her providers now and [facility] in the future if depression continues to escalate. Disposition BEHAVIOR: Cooperative, thorough, insightful EYE CONTACT: Good MOOD: depressed AFFECT: constricted APPETITE: no issues reported SLEEP(trouble falling/staying asleep: none reported Plan Sarita will be released to herself and return home with her boyfriend and child. She will discuss the incident with the counselor that recommended her for inpatient treatment. She is open under [facility] and will call for assistance if she feels her depression is getting worse. Her boyfriend has also agreed to call the emergency line as a support person if needed also. This bid writer will follow up with her in one week to discuss the counseling option. She also will discuss her medications with her PCP and included in [facility] outreach will be a referral to an NUCLEAR MEDICINE TECHNOLOGIST if needed .
== END 2018-07-29 17:07 | disposition home or self-care (01) ==
PROVIDERS: Emergency Provider Student in an Organized Health Care Education/Training Program; PCP Nurse Practitioner Family
DX: F32.9 Major depressive disorder, single episode, unspecified (principal)
CPT/HCPCS: 80053; 80307; 81025; 99284; 80329; 81003; 81015; 84443; 85025

== ENCOUNTER 2018-08-17 10:38 | Outpatient (REF) | payer MEDICAID, SELFPAY ==
[2018-08-17 22:24] LABS: TSH 1.94 uIU/mL (0.358-3.74)
== END 2018-08-17 10:58 ==
LOC: NCHCN 10:38
PROVIDERS: PCP Nurse Practitioner Family; Visit Provider Nurse Practitioner Family
DX: R73.03 Prediabetes (principal); G43.109 Migraine with aura, not intractable, without status migrainosus; M25.561 Pain in right knee; E66.9 Obesity, unspecified; J06.9 Acute upper respiratory infection, unspecified
CPT/HCPCS: 84443

== ENCOUNTER 2018-08-29 09:40 | Emergency (ER) | payer MEDICAID, SELFPAY ==
[2018-08-29] VITALS (13 sets, daily range): BP systolic 116–127; BP diastolic 70–83; PULSE 62–94; RESP 13–25; TEMP 36.6; O2SAT 96–100
--- NOTE | 2018-08-29 10:00 | DI.CT_ITS ---
SYMPTOMS/DIAGNOSIS: COUGH, HX CLOTS, CHEST PAIN, SHORTNESS OF BREATH PE CHEST CT: CT angiography was performed with multi slice acquisition and multi planar and 3D reconstruction. The pulmonary arteries and aorta are well opacified with IV contrast and no pulmonary emboli or aortic dissection is seen. The heart size is normal. The aorta is normal in diameter. The lungs are clear. No infiltrate, pleural or pericardial effusion is seen. No bony abnormalities are identified. The visualized portions of the upper abdomen are unremarkable. IMPRESSION: Negative CTA of the chest. No evidence of pulmonary emboli or other acute abnormality.
--- NOTE | 2018-08-29 10:15 | ED.GENADUL_ITS ---
Discharge Plan Disposition Patient Disposition: HOME Condition: Good Discharge Details Chief Complaint: Chest Pain Clinical Impression: Precordial catch syndrome, Pericarditis Primary Care Provider: DAVID CAI ED Provider: Brayden Carter Home Meds and New Rx's Prescriptions: No Action bupropion HCl 150 MG tablet extended release 12 hr 150 mg PO DAILY RF: 0 Tension Headache 500-65 mg Tablet 2 tab PO PRN PRNRF: 0 tramadol 50 mg tablet 50 mg PO QID PRN (Reason: pain) Qty: 16 RF: 0 citalopram 40 MG tablet 1 tab PO DAILY RF: 0 zonisamide [Zonegran] 100 MG capsule 1 cap PO DAILY RF: 0 Nexplanon 68 MG implant 1 unit DAILY RF: 0 ibuprofen 200 MG tablet 1 tab PO PRN PRNRF: 0 ondansetron 4 MG tablet,disintegrating 4 mg PO Q8H PRN (Reason: Nausea) Qty: 6 RF: 0 Aimovig Autoinjector 70 mg/mL Auto-Injector 70 mg SUBCUT QMONTH RF: 0 Discharge Instructions Instructions: Acute Pericarditis (ED) Additional Instructions: Please take 800 mg of ibuprofen and 1000mg of Tylenol every 6 hours. Please drink plenty fluids. if you notice any worsening of your symptoms, or any new symptoms such as vomiting, diarrhea, fever, chills, shortness of breath, chest pain, numbness, weakness, or fainting , please return immediately to the emergency department for reevaluation. Please follow up with your primary care provider as soon as possible for reassessment and reevaluation. As always, it was a pleasure participating in your medical care today. Referrals: DAVID CAI [Primary Care Provider] - Discharge Data Discharge Date/Time-TO BE ENTERED AT DEPARTURE: 08/29/18 12:48 Medical Decision Making This is a 27-year-old female who presents today for evaluation of chest pain. Pain began last night, it is sharp in nature, improved when she sits forward, worsened when she sits back, very brief, and associated with some mild pleuritic pain when she breathes. Vital signs are stable and reassuring with no tachycardia or hypoxemia. Because of the patient's history of clot, we did get a CT angiogram to rule out potential PE. Laboratory workup is negative for any signs of infection, electrolyte abnormality, troponin is normal, CT scan shows no acute process or other abnormality. Lidoderm patch, and Toradol the patient had notable improvement of her symptoms. With reassuring EKG, a benign CT angiogram per virtual radiology, no other acute process feel her signs and symptoms most likely secondary to precordial catch syndrome and mild pericarditis. With a normal troponin, benign EKG, otherwise benign workup I feel she can be safely discharged with close follow-up, and continued NSAIDs. We discussed red flags which to return the patient understands. I have extensively reviewed the treatment plan and discharge instructions with the patient. I have addressed all patient concerns at this time. The patient was made aware of what symptoms to monitor for that would warrant a return to the emergency department. Discussed the plan with the patient, they demonstrate verbal understanding and agreement with our assessment and plan at this time. EKG 10: 04 Rate 74, intervals normal, sinus rhythm, no significant ST elevations or depr ession, inverted T wave in V1 and lead III, no Q waves. EXAM: CT Angiography Chest With Contrast EXAM DATE/TIME: 08/29/2018 10:02 AM CLINICAL HISTORY: 27 years old, female; Pain and signs and symptoms; Shortness of breath and other: HX blood clots behind eyeball; Chest pain TECHNIQUE: Axial computed tomographic angiography images of the chest with intravenous contrast using CT angiography protocol. Coronal and sagittal reformatted images were created and reviewed. MIP reconstructed images were created and reviewed. CONTRAST: Contrast Material: 100 ml of omni 350; Contrast Route: r ac 18 g IV cath COMPARISON: CR XR CHEST 2V PA LATERAL 06/30/2018 1:23 PM FINDINGS: Pulmonary arteries: Normal. No pulmonary emboli. Aorta: Normal. No aortic aneurysm. No aortic dissection. Lungs: Normal. No consolidation. No masses. Pleural space: Normal. No pneumothorax. No pleural effusion. Heart: Normal. No cardiomegaly. No pericardial effusion. Lymph nodes: Unremarkable. No enlarged lymph nodes. Bones/joints: Unremarkable. No acute fracture. Soft tissues: Unremarkable. IMPRESSION: No acute findings. HPI General Date/Time Provider Initiated Documentation: 08/29/18 09:45 . HPI Narrative: This is a 27-year-old female with a past medical history of tobacco abuse, or contraceptive use, history of blood clot in the past, who presents today for evaluation of chest pain. Patient states that at 2 AM she developed a mild chest pain that lasts just a few seconds and then goes away on its own. There is some mild radiation to the right shoulder. She describes it is central in her chest, sharp in nature, she has had a mild cough for the last week, with occasional productive green sputum. She denies any hemoptysis. Symptoms are improved when she sits upright forward, worsened when she lies flat. She denies any vomiting, diarrhea. Denies PE risk factors such as recent long car rides, immobilization, recent surgery, , family history of PE or DVT, morbid obesity, hemoptysis, history of cancer. Patient denies any fever or chills. She denies any other complaints at this time. No other modifying factors. Related Data Home Medications Medication Instructions Recorded Confirmed Nexplanon 1 unit DAILY 10/05/17 08/29/18 citalopram 1 tab PO DAILY 10/05/17 08/29/18 ibuprofen 1 tab PO PRN PRN 10/05/17 08/29/18 zonisamide [Zonegran] 1 cap PO DAILY 10/05/17 08/29/18 ondansetron 4 mg PO Q8H PRN #6 tab.rapdis 02/12/18 08/29/18 bupropion HCl 150 mg PO DAILY 02/18/18 08/29/18 Tension Headache 2 tab PO PRN PRN 06/28/18 08/29/18 tramadol 50 mg PO QID PRN #16 tab 07/02/18 08/29/18 erenumab-aooe [Aimovig 70 mg SUBCUT QMONTH 08/29/18 08/29/18 Autoinjector] Previous Rx's Medication Instructions Recorded ondansetron 4 mg PO Q8H PRN #6 tab.rapdis 02/12/18 tramadol 50 mg PO QID PRN #16 tab 07/02/18 Allergies Allergy/AdvReac Type Severity Reaction Status Date / Time metronidazole [From Flagyl] Allergy Severe Hives Unverified 08/29/18 10:13 vancomycin Allergy Severe Hives Unverified 08/29/18 10:13 adhesive tape Allergy Mild Hives Unverified 08/29/18 10:13 General Stated Complaint: Chest Pain JAYE: 3 Review of Systems Review of Systems All systems reviewed & are unremarkable except as noted in HPI and below PFSH Social History Smoking and Tabacco status: Current every day History History Para Hx # Term Pregnancies 1 Multiple births Hx # Pregnancies Ectopic pregnancies AB induced Hx Number of Living Children AB spontaneous Exam Narrative Exam Narrative: 1.Const: Well-nourished, Well-developed, appearing stated age 2.Eyes: PERRL, no conjunctival injection, and symmetrical lids. 3.ENT: Atraumatic external nose and ears. Moist MM. Neck: Symmetric, trachea midline, No thyromegaly. 4.CVS: +S1/S2, No murmurs or gallops. Peripheral pulses 2+ and equal in all extremities. Brisk capillary refill in all extremities. 5.RESP: Unlabored respiratory effort. Clear to auscultation bilaterally. No wheezes rales or rhonchi. Mild reproducible anterior chest wall pain. 6.GI: Soft, Nontender/Nondistended, No hepatosplenomegaly. No guarding or rebound. 7.MSK: Normocephalic/Atraumatic, Extremities w/o deformity or ttp No cyanosis or clubbing, Normal movement of all extremities. No calf wall tenderness. 8.Skin: Warm, Dry. No rashes or lesions. 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 Sensation grossly intact, no focal neurologic deficits. 10.Psych: (AAO) x3. Appropriate mood and affect Course Vital Signs Temperature 36.6 C 08/29/18 09:46 Pulse 94 H 08/29/18 09:46 Respiratory Rate 18 08/29/18 09:46 Blood Pressure 127/83 08/29/18 09:46 Pulse Oximetry 99 08/29/18 09:46 Temperature 36.6 C 08/29/18 09:46 Temperature Source Skin 08/29/18 09:46 Pulse 94 H 08/29/18 09:46 Respiratory Rate 18 08/29/18 09:46 Blood Pressure 127/83 08/29/18 09:46 Pulse Oximetry 99 08/29/18 09:46 Pain Level 6 08/29/18 09:46
[2018-08-29 10:16] LABS: Abs Immature Grans 0.04 k/cumm (0.0-0.09); Absolute Basophil Count 0.06 k/cumm (0.0-0.2); Absolute Eosinophil Count 0.29 k/cumm (0.0-0.7); Absolute Lymphocyte Count 2.68 k/cumm (1.2-3.4); Absolute Monocyte Count 0.93 k/cumm (0.11-0.7); Absolute Neutrophil Count 6.48 k/cumm (1.2-6.7); Basophils % 0.6; Eosinophils % 2.8; HCT 41.7 % (36.0-46.0); HGB 14.6 g/dL (12.0-15.5); Immature Grans % 0.4; Lymphocytes % 25.6; Mean Corpuscular Hemoglobin 32.1 pg (27.0-33.0); Mean Corpuscular Volume 91.6 fL (80-95); Mean Platelet Volume 9.4 fL (8.0-11.0); Monocytes % 8.9; Neutrophils % 61.7; Platelet Count 314 x1000/uL (130-400); RBC 4.55 m/cumm (4.00-5.20); White Blood Cell Count 10.48 k/cumm (4.4-10.8)
[2018-08-29] MEDS: Normal Saline 1,000 ML 1000 ML IV (10:20)
[2018-08-29] MEDS: Ketorolac 30 MG/ML VIAL 15 MG IVP (10:20)
[2018-08-29] MEDS: Lidocaine 5% Patch 1 PATCH TP (10:22)
[2018-08-29 10:30] LABS: INR 1.1 (0.9-1.1); PTT Activated 26.4 sec (21.0-31.4); Prothrombin Time 10.6 sec (9.3-11.0)
[2018-08-29 10:34] LABS: ALT 43 U/L (12-78); AST 23 U/L (15-37); Albumin 3.6 g/dL (3.4-5.0); Alkaline Phosphatase 83 U/L (46-116); Anion Gap 9.5 mmol/L (3-11); BUN 9 mg/dL (7-18); Bilirubin, Total 0.6 mg/dL (0.2-1.0); CO2 27.5 mmol/L (21.0-32.0); CREATININE 0.89 mg/dL (0.55-1.02); Calcium 9.3 mg/dL (8.5-10.1); Chloride 102 mmol/L (98-107); Glucose 130 mg/dL (70-100); Potassium 3.8 mmol/L (3.5-5.1); Sodium 139 mmol/L (136-145)
[2018-08-29 10:36] LABS: Troponin I < 0.02 ng/mL (0.00-0.06)
[2018-08-29] MEDS: Omnipaque 350 MG/ML 100 ML BTL IJ (10:51)
--- NOTE | 2018-08-29 10:58 | DI.VRAD_ITS ---
EXAM: CT Angiography Chest With Contrast EXAM DATE/TIME: 08/29/2018 10:02 AM CLINICAL HISTORY: 27 years old, female; Pain and signs and symptoms; Shortness of breath and other: HX blood clots behind eyeball; Chest pain TECHNIQUE: Axial computed tomographic angiography images of the chest with intravenous contrast using CT angiography protocol. Coronal and sagittal reformatted images were created and reviewed. MIP reconstructed images were created and reviewed. CONTRAST: Contrast Material: 100 ml of omni 350; Contrast Route: r ac 18 g IV cath COMPARISON: CR XR CHEST 2V PA LATERAL 06/30/2018 1:23 PM FINDINGS: Pulmonary arteries: Normal. No pulmonary emboli. Aorta: Normal. No aortic aneurysm. No aortic dissection. Lungs: Normal. No consolidation. No masses. Pleural space: Normal. No pneumothorax. No pleural effusion. Heart: Normal. No cardiomegaly. No pericardial effusion. Lymph nodes: Unremarkable. No enlarged lymph nodes. Bones/joints: Unremarkable. No acute fracture. Soft tissues: Unremarkable. IMPRESSION: No acute findings. Dictated and Authenticated by: Nadir Reyes MD. Ordering:BERT Owen MD
== END 2018-08-29 12:48 | disposition home or self-care (01) ==
PROVIDERS: Emergency Provider Student in an Organized Health Care Education/Training Program; PCP Nurse Practitioner Family
DX: R07.2 Precordial pain (principal); Z86.718 Personal history of other venous thrombosis and embolism
CPT/HCPCS: 36415; 71275; 80053; 81025; 93005; 96361; 96374; 99285; 84484; 85025; 85610; 85730; 93010; J1885; J3490

== ENCOUNTER 2019-06-03 15:57 | Outpatient (REF) | payer MEDICAID, SELFPAY | END 2019-06-03 16:17 | LOC: NCHCN 15:57 | PROVIDERS: PCP Nurse Practitioner Family; Visit Provider Nurse Practitioner Community Health | DX: R10.9 Unspecified abdominal pain (principal) | CPT/HCPCS: 87086 ==

== ENCOUNTER 2019-08-24 11:48 | Outpatient (REF) | payer MEDICAID, SELFPAY ==
--- NOTE | 2019-08-24 11:00 | PAPFT_PTH ---
PATIENT: Sarita Virgen LOC: [facility]#:[id number] AGE/SX: 28/F ROOM: RE08/24/[address]: Beba Paiz : 1990 BED: DIS: 08/24/2019 SPEC #: [id number] RECD: 08/25/19 12:39 STATUS: NYA REMagaly #: [id number] CHARLES: 08/24/19 11:[address]: Beba Eduardo DEPT: [facility] Cytology RECD BY: Rebecca Storey Tissues: 1 - CX/ENDOCX FOR PAP SMEARS Procedures: PAP THIN PREP/UVM Screening HPV DNA PROBE Comments: [id number]
[2019-08-24 21:37] LABS: Calculated LDL 71 mg/dL (<100); Cholesterol 163 mg/dL (<200); HDL Cholesterol 29 mg/dL (40-60); Triglyceride 316 mg/dL (<150)
[2019-08-24 21:48] LABS: Hemoglobin A1C 5.7 % (3.8-5.6)
== END 2019-08-24 12:08 ==
LOC: NCHCN 11:48
PROVIDERS: PCP Nurse Practitioner Family; Visit Provider Nurse Practitioner Family
DX: Z12.4 Encounter for screening for malignant neoplasm of cervix (principal); R73.03 Prediabetes; Z72.0 Tobacco use; R51 Headache; Z13.220 Encounter for screening for lipoid disorders; E66.9 Obesity, unspecified; R87.612 Low grade squamous intraepithelial lesion on cytologic smear of cervix (LGSIL)
CPT/HCPCS: 80061; 88142; 83036; 87624

== ENCOUNTER 2019-11-15 09:31 | Outpatient (CLI) | payer MEDICAID, SELFPAY ==
[2019-11-16 17:50] LABS: COVID-19 RT-PCR Result NEGATIVE (Negative)
== END 2019-11-15 09:51 ==
PROVIDERS: PCP Nurse Practitioner Family; Visit Provider Nurse Practitioner Family
DX: Z11.59 Encounter for screening for other viral diseases (principal)
CPT/HCPCS: U0003

== ENCOUNTER 2020-03-02 19:47 | Outpatient (REF) | payer MEDICAID, SELFPAY ==
[2020-03-05 18:16] LABS: Patient Race White; SARS-CoV-2 RNA Undetected (Undetected); SARS-CoV-2 Specimen Source Nasal
== END 2020-03-02 20:07 ==
LOC: NCHCN 19:47
PROVIDERS: PCP Nurse Practitioner Family; Visit Provider Nurse Practitioner Family
DX: R53.83 Other fatigue (principal); R52 Pain, unspecified
CPT/HCPCS: U0003

== ENCOUNTER 2020-03-07 15:10 | Outpatient (REF) | payer MEDICAID, SELFPAY ==
[2020-03-07 21:13] LABS: Abs Immature Grans 0.05 10^3/uL (0.0-0.06); Absolute Basophil Count 0.08 10^3/uL (0.0-0.2); Absolute Eosinophil Count 0.29 10^3/uL (0.0-0.7); Absolute Lymphocyte Count 3.12 10^3/uL (1.2-3.4); Absolute Monocyte Count 0.77 10^3/uL (0.1-0.8); Absolute Neutrophil Count 6.79 10^3/uL (1.2-6.7); Basophils % 0.7; Eosinophils % 2.6; HCT 44.4 % (36.0-46.0); HGB 15.1 g/dL (11.2-15.7); Immature Grans % 0.5; Lymphocytes % 28.1; MCH 31.7 pg (27.0-33.0); MCV 93.3 fL (80-95); MPV 10.5 fL (8.0-11.0); Monocytes % 6.9; Neutrophils % 61.2; Nucleated RBC 0 %; Platelet Count 350 10^3/uL (130-400); RBC 4.76 10^6/uL (3.93-5.22); RDW-SD 41.6 fL
[2020-03-07 21:28] LABS: ALT 55 U/L (14-59); AST 26 U/L (15-37); Albumin 4.1 g/dL (3.4-5.0); Alkaline Phosphatase 72 U/L (46-116); Anion Gap 8.9 mmol/L (3-11); BUN 6 mg/dL (7-18); Bilirubin, Total 0.5 mg/dL (0.2-1.0); CO2 26.1 mmol/L (21.0-32.0); CREATININE 0.92 mg/dL (0.55-1.02); Calcium 9.8 mg/dL (8.5-10.1); Chloride 102 mmol/L (98-107); Glucose 107 mg/dL (74-106); Lipase 83 U/L (73-393); Potassium 4.2 mmol/L (3.5-5.1); Sodium 137 mmol/L (136-145); Total Protein 7.7 g/dL (6.4-8.2)
[2020-03-07 21:35] LABS: Hemoglobin A1C 5.7 % (<5.7)
== END 2020-03-07 15:30 ==
LOC: NCHCN 15:10
PROVIDERS: PCP Nurse Practitioner Family; Visit Provider Nurse Practitioner Family
DX: R73.03 Prediabetes (principal); R10.9 Unspecified abdominal pain
CPT/HCPCS: 80053; 83690; 83036; 85025

== ENCOUNTER 2020-03-08 18:44 | Emergency (ER) | payer MEDICAID, SELFPAY ==
[2020-03-08 18:51] VITALS: BP 134/73; PULSE 78; RESP 16; TEMP 36.8; O2SAT 97
--- NOTE | 2020-03-08 19:06 | W.ED.GENAD ---
Discharge Plan Disposition Patient Disposition: HOME Condition: Good Discharge Details Chief Complaint: Abd Prob Clinical Impression: Abdominal pain Primary Care Provider: DAVID CAI ED Provider: Brayden Carter Home Meds and New Rx's Prescriptions: New dicyclomine 10 mg capsule 10 mg PO BID Qty: 20 RF: 0 No Action bupropion HCl 150 MG tablet extended release 12 hr 150 mg PO DAILY RF: 0 Tension Headache 500-65 mg Tablet 2 tab PO PRN PRNRF: 0 tramadol 50 mg tablet 50 mg PO QID PRN (Reason: pain) Qty: 16 RF: 0 citalopram 40 MG tablet 1 tab PO DAILY RF: 0 zonisamide [Zonegran] 100 MG capsule 1 cap PO DAILY RF: 0 Nexplanon 68 MG implant 1 unit DAILY RF: 0 ibuprofen 200 MG tablet 1 tab PO PRN PRNRF: 0 ondansetron 4 MG tablet,disintegrating 4 mg PO Q8H PRN (Reason: Nausea) Qty: 6 RF: 0 Aimovig Autoinjector 70 mg/mL Auto-Injector 70 mg SUBCUT QMONTH RF: 0 Discharge Instructions Instructions: Abdominal Pain (ED) Additional Instructions: At this time the CT scan shows no evidence of life-threatening intra-abdominal abnormality, however I would not be surprised if this is mild Crohn's or your irritable bowel syndrome. Please take the Bentyl only as needed. Please follow-up with surgery on an outpatient basis for future colonoscopy. Avoid spicy or greasy foods. If you notice any worsening of your symptoms, or any new symptoms such as vomiting, diarrhea, fever, chills, shortness of breath, chest pain, numbness, weakness, or fainting , please return immediately to the emergency department for reevaluation. Please follow up with your primary care provider as soon as possible for reassessment and reevaluation. As always, it was a pleasure participating in your medical care today. Stand Alone Forms: Work Release Referrals: Shonna Unger MD [ [facility] STAFF PHYSICIAN] - Vannessa Puga MD [ [facility] STAFF PHYSICIAN] - Vidhya Roy DO [OSTEOPATHIC DOCTOR] - Medical Decision Making <Anibal Guevara MD - Last Filed: 03/08/20 19:39> This is a pleasant 29-year-old female presents from home with day 2 of lower abdominal pain that is located the right lower quadrant. Seems worse with movement and is associated with depressed appetite. She will note earlier sore throat and cough for which she was referred for unremarkable outpatient COVID screen that she reports was negative. She does not have any persistent sore throat and no cough or fever. On exam she is well-appearing and interactive. She is tender in the right lower quadrant of the abdomen. Differential diagnosis includes appendicitis, atypical presentation of colitis/diverticulitis, a sending urinary tract infection. Patient IV access established, she was offered analgesia which she declined, she was given fluids and antiemetic. She is referred for laboratory testing and CT images. Patient be signed out to Dr. Carter at change of shift pending diagnostic studies. Please see his note. <Brayden Carter, DO - Last Filed: 03/08/20 22:10> Patient was signed out to me by my colleague Dr. Anibal Guevara. Please refer to his HPI, physical exam, assessment and plan. Time of signout we are waiting on follow-up from labs and imaging. Laboratory work-up is returned, no significant abnormalities, no left shift, bandemia, electrolyte abnormality or significant urinary abnormality. Trace RBCs and WBCs, no signs of significant infection. CT scan results have returned, normal appendix, no acute findings per virtual radiology. On reassessment patient is feeling better. Your pain still mildly present, but repeat exam demonstrates no signs of an acute surgical abdomen. I did discuss with her her family history, and does sound like her father has had Crohn's disease. She denies any karen hematochezia or melena. Father was diagnosed with Crohn's at age 21. She had a colonoscopy at 22 but none since then over the last 7 years. This time with no evidence of an acute surgical abdomen I do feel that she can be safely discharged, signs and symptoms likely related to irritable bowel syndrome, however Crohn's is on the differential with minimal colitis. Recommend close outpatient follow-up, will place referral for surgery services for future colonoscopy. Will give Bentyl for home use to use sparingly as needed. Discussed red flags which to return. I have extensively reviewed the treatment plan and discharge instructions with the patient. I have addressed all patient concerns at this time. The patient was made aware of what symptoms to monitor for that would warrant a return to the emergency department. Discussed the plan with the patient, they demonstrate verbal understanding and agreement with our assessment and plan at this time. FINDINGS: Liver: Normal. No mass. Gallbladder and bile ducts: Normal. No calcified stones. No ductal dilation. Pancreas: Normal. No ductal dilation. Spleen: Normal. No splenomegaly. Adrenals: Normal. No mass. Kidneys and ureters: Normal. No hydronephrosis. Stomach and bowel: Unremarkable. No obstruction. No mucosal thickening. Appendix: No evidence of appendicitis. Intraperitoneal space: Unremarkable. No free air. No significant fluid collection. Vasculature: Unremarkable. No abdominal aortic aneurysm. Lymph nodes: Unremarkable. No enlarged lymph nodes. Bladder: Unremarkable as visualized. Reproductive: Unremarkable as visualized. Bones/joints: Unremarkable. No acute fracture. Soft tissues: Unremarkable. IMPRESSION: No acute findings. Normal appendix. Thank you for allowing us to participate in the care of your patient. Dictated and Authenticated by: Aiyana Mendoza MD 03/08/2020 9:31 PM Eastern Time ([place] & [place]) HPI <Anibal Guevara MD - Last Filed: 03/08/20 19:39> General Mode of arrival: ambulatory. Date/Time Provider Initiated Documentation: 03/08/20 18:44. Limitations to Documentation: no limitations. Information obtained by: patient. History of Present Illness 29 year old F presents to the emergency department with the chief complaint of Right lower quadrant abdominal pain, day 2, described as moderate, Quality is described as dull and constant, and is localized to the abdomen and right. Patient started experiencing this hour(s) and it has been constant. Rest improves symptom(s), Movement worsens symptoms . Patient notes loss of appetite. Patient did receive the following treatments prior to arrival, none Related Data Home Medications Medication Instructions Recorded Confirmed Nexplanon 1 unit DAILY 10/05/17 08/29/18 citalopram 1 tab PO DAILY 10/05/17 08/29/18 ibuprofen 1 tab PO PRN PRN 10/05/17 08/29/18 zonisamide [Zonegran] 1 cap PO DAILY 10/05/17 08/29/18 ondansetron 4 mg PO Q8H PRN #6 tab.rapdis 02/12/18 08/29/18 bupropion HCl 150 mg PO DAILY 02/18/18 08/29/18 Tension Headache 2 tab PO PRN PRN 06/28/18 08/29/18 tramadol 50 mg PO QID PRN #16 tab 07/02/18 08/29/18 erenumab-aooe [Aimovig 70 mg SUBCUT QMONTH 08/29/18 08/29/18 Autoinjector] dicyclomine 10 mg PO BID #20 cap 03/08/20 Previous Rx's Medication Instructions Recorded ondansetron 4 mg PO Q8H PRN #6 tab.rapdis 02/12/18 tramadol 50 mg PO QID PRN #16 tab 07/02/18 dicyclomine 10 mg PO BID #20 cap 03/08/20 Allergies Allergy/AdvReac Type Severity Reaction Status Date / Time metronidazole [From Flagyl] Allergy Severe Hives Unverified 03/08/20 18:56 vancomycin Allergy Severe Hives Unverified 03/08/20 18:56 adhesive tape Allergy Mild Hives Unverified 03/08/20 18:56 General Stated Complaint: Abd Prob JAYE: 3 Review of Systems <Anibal Guevara MD - Last Filed: 03/08/20 19:39> Narrative: Negative leone 19 test this week. 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 No cough. Nauseated without emesis. Last menstrual period approximate 2 years ago on Nexplanon. 8 systems reviewed and otherwise negative PFSH <Anibal Guevara MD - Last Filed: 03/08/20 19:39> Medical History Depression (Chronic ~01/2018) Suicidal, transferred to [facility] for further psych eval Migraine headache (Chronic) Suicidal ideation (Resolved) Social History Smoking/Tobacco Use Status: Current every day Tobacco Type: cigarettes Alcohol Intake: never Drug use: Never Substance use type: does not use Do you feel safe at home: Yes Do you feel safe in your relationship?: Yes History History Para Hx # Term Pregnancies 1 Multiple births Hx # Pregnancies Ectopic pregnancies AB induced Hx Number of Living Children AB spontaneous Exam <Anibal Guevara MD - Last Filed: 03/08/20 19:39> Narrative Exam Narrative: GEN: awake, alert, oriented 3. Pleasant, well groomed, interactive. HEAD: Normocephalic, atraumatic ENT: Mucous membranes moist, oropharynx unremarkable, External ear exam unremarkable EYES: PERRL, EOMI NECK: Full ROM, no ROBE, no menigismus CHEST/RESP: Nontender, clear to auscultation bilateral, no wheeze/rhonchi/rales CARDIOVASCULAR: RRR, no murmur, rub kaley. 2+ Rad pulse bilateral ABDOMEN: Soft, tender in the right lower quadrant with mild rebound, no mass. +Bowel sounds EXT: Full ROM, no edema, no rash Neuro: Grossly normal neurologic exam, conversant, interactive. Psych: Speech fluent, thoughts congruent, affect normal Course <Anibal Guevara MD - Last Filed: 03/08/20 19:39> Vital Signs Vital signs: Vital Signs Temperature 36.8 C 03/08/20 18:51 Pulse 78 03/08/20 18:51 Respiratory Rate 16 03/08/20 18:51 Blood Pressure 134/73 03/08/20 18:51 Pulse Oximetry 97 03/08/20 18:51 Temperature 36.8 C 03/08/20 18:51 Temperature Source Skin 03/08/20 18:51 Pulse 78 03/08/20 18:51 Respiratory Rate 16 03/08/20 18:51 Respiratory Effort Non-Labored 03/08/20 18:51 Blood Pressure 134/73 03/08/20 18:51 Blood Pressure Position Sitting 03/08/20 18:51 Pulse Oximetry 97 03/08/20 18:51 Oxygen Delivery Method Room Air 03/08/20 18:51 Oxygen Flow Rate 0 03/08/20 18:51 Pain Level 8 03/08/20 18:51 Sign Out <Anibal Guevara MD - Last Filed: 03/08/20 19:39> Sign Out Data: Sign Out Comment: Follow-up laboratory and CT images Last updated by Anibal Guevara MD at 03/08/20 19:49
[2020-03-08] MEDS: Ondansetron 4 MG/2 ML VIAL IVP (19:34)
[2020-03-08] MEDS: Normal Saline 1,000 ML 1000 ML IV (19:34)
[2020-03-08 19:38] LABS: Abs Immature Grans 0.04 10^3/uL (0.0-0.06); Absolute Basophil Count 0.06 10^3/uL (0.0-0.2); Absolute Eosinophil Count 0.29 10^3/uL (0.0-0.7); Absolute Lymphocyte Count 2.83 10^3/uL (1.2-3.4); Absolute Monocyte Count 0.87 10^3/uL (0.1-0.8); Absolute Neutrophil Count 6.34 10^3/uL (1.2-6.7); Basophils % 0.6; Eosinophils % 2.8; HCT 41.1 % (36.0-46.0); Immature Grans % 0.4; Lymphocytes % 27.1; MCH 31.5 pg (27.0-33.0); MCHC 34.1 % (32.0-36.0); MCV 92.4 fL (80-95); MPV 9.7 fL (8.0-11.0); Monocytes % 8.3; Neutrophils % 60.8; Nucleated RBC 0 %; Platelet Count 288 10^3/uL (130-400); RBC 4.45 10^6/uL (3.93-5.22); RDW-SD 41.1 fL; WBC 10.43 10^3/uL (4.4-10.8)
--- NOTE | 2020-03-08 19:58 | NUR.NOTE ---
report given to JEANINE Hendrix
[2020-03-08 19:59] LABS: ALT 46 U/L (14-59); AST 23 U/L (15-37); Albumin 3.4 g/dL (3.4-5.0); Alkaline Phosphatase 67 U/L (46-116); Anion Gap 7.4 mmol/L (3-11); BUN 13 mg/dL (7-18); Bilirubin, Total 0.4 mg/dL (0.2-1.0); CO2 28.6 mmol/L (21.0-32.0); CREATININE 0.93 mg/dL (0.55-1.02); Calcium 9.3 mg/dL (8.5-10.1); Chloride 102 mmol/L (98-107); Glucose 100 mg/dL (74-106); Potassium 3.9 mmol/L (3.5-5.1); Sodium 138 mmol/L (136-145); Total Protein 7.1 g/dL (6.4-8.2)
[2020-03-08 20:23] LABS: Bilirubin Negative (Negative); Blood Trace-intact (Negative); Clarity Clear (Clear); Glucose Negative (Negative); Ketones Negative (Negative); Leukocyte Esterase Trace (Negative); Nitrite Negative (Negative); Urobilinogen 0.2 EU/dL (Up TO 0.2)
[2020-03-08 20:36] LABS: Bacteria Negative HPF (Negative); C & S Indicated? Yes; Casts Negative LPF (Negative); Crystals Negative HPF (Negative); Epithelial Cells Few HPF (Negative); Mucus Negative (Negative); Other Cells Negative (Negative)
[2020-03-08] MEDS: Omnipaque 350 MG/ML 50 ML BTL IJ (20:52)
[2020-03-08] MEDS: Normal Saline Flush 10 ML SYR IVP (20:53)
[2020-03-08] MEDS: Breeza Beverage 473 ML BTL PO ×2 (20:54→20:55)
[2020-03-08] MEDS: Normal Saline - Diluent 50 ML VIAL IV (20:55)
[2020-03-08] MEDS: Omnipaque 350 MG/ML 100 ML BTL IJ (21:00)
--- NOTE | 2020-03-08 21:04 | DI.CT_ITS ---
EXAM: CT ABDOMEN PELVIS W CLINICAL HISTORY: Right lower quadrant abdominal pain. TECHNIQUE: Imaging Protocol: Axial computed tomography images with coronal and sagittal reformatted images were created and reviewed CONTRAST MATERIAL: Intravenous: Omnipaque 350 Contrast volume:100 cc Oral: y/ no COMPARISON: CT CT chest PE CTA from 08/29/2018 FINDINGS: ABDOMEN: Lung Bases: Normal where visualized. Liver: Normal density. No measurable mass. Gallbladder and biliary tract: No radiodense calculus or dilation. Pancreas: Normal density, no abnormal calcifications or inflammatory process. Spleen: Normal. Kidneys: Normal size, contour and axis. No radiodense stones or obstructive uropathy. No masses seen. Adrenal glands: No masses seen. Abdominal Aorta: Abdominal portion non-dilated. PELVIS: Bladder: Symmetric distention, no gross wall thickening. Bowel: No obstruction or bowel wall thickening. The appendix is well seen and has a normal appearance Peritoneal cavity: No ascites, collection or mesenteric inflammatory response. Bones: Within normal limits. Reproductive organs: Within normal limits. Lymph nodes: Unremarkable. Impression: Unremarkable CT scan of the abdomen and pelvis. RADIATION DOSE DELIVERED: Total DLP DATA REPOSITORY: All CT scans at this facility are submitted to the National Radiology Data Registry (NRDR) Dose Index Registry (DIR) with the [employer] (ACR). RADIATION OPTIMIZATION: All CT scans at this facility use at least one of these dose optimization te chniques: automated exposure control; mA and/or kV adjustment per patient size (includes targeted exa ms where dose is matched to clinical indication); or iterative reconstruction.
--- NOTE | 2020-03-08 21:31 | DI.VRAD_ITS ---
PROCEDURE INFORMATION: Exam: CT Abdomen And Pelvis With Contrast Exam date and time: 03/08/2020 8:58 PM Age: 29 years old Clinical indication: Abdominal pain; Localized; Right lower quadrant (rlq) TECHNIQUE: Imaging protocol: Computed tomography of the abdomen and pelvis with intravenous contrast. Radiation optimization: All CT scans at this facility use at least one of these dose optimization techniques: automated exposure control; mA and/or kV adjustment per patient size (includes targeted exams where dose is matched to clinical indication); or iterative reconstruction. Contrast material: RLXG002; Contrast volume: 100 ml; Contrast route: INTRAVENOUS (IV); COMPARISON: CT Private^ROUTINE ABDOMEN PELVIS WITH CONTRAST (Adult) 02/12/2018 9:03 PM FINDINGS: Liver: Normal. No mass. Gallbladder and bile ducts: Normal. No calcified stones. No ductal dilation. Pancreas: Normal. No ductal dilation. Spleen: Normal. No splenomegaly. Adrenals: Normal. No mass. Kidneys and ureters: Normal. No hydronephrosis. Stomach and bowel: Unremarkable. No obstruction. No mucosal thickening. Appendix: No evidence of appendicitis. Intraperitoneal space: Unremarkable. No free air. No significant fluid collection. Vasculature: Unremarkable. No abdominal aortic aneurysm. Lymph nodes: Unremarkable. No enlarged lymph nodes. Bladder: Unremarkable as visualized. Reproductive: Unremarkable as visualized. Bones/joints: Unremarkable. No acute fracture. Soft tissues: Unremarkable. IMPRESSION: No acute findings. Normal appendix. Dictated and Authenticated by: Aiyana Mendoza MD. Ordering:CHIDI Barnett MD
--- NOTE | 2020-03-08 22:04 | NUR.NOTE ---
Nursing Note:referal sent to surgery for colonoscopy 03/08/20
[2020-03-08] MEDS: Dicyclomine 20 MG TAB PO (22:13)
== END 2020-03-08 21:10 | disposition home or self-care (01) ==
PROVIDERS: Emergency Medicine; Emergency Provider Student in an Organized Health Care Education/Training Program; PCP Nurse Practitioner Family
DX: R10.31 Right lower quadrant pain (principal); Z83.79 Family history of other diseases of the digestive system; K58.9 Irritable bowel syndrome, unspecified
CPT/HCPCS: 80053; 96361; 96374; 99285; 74177; 81003; 81015; 85025; 87086; 99284; J2405; J3490; Q9967

== ENCOUNTER 2020-03-15 07:41 | Day surgery (SDC) | payer MEDICAID, SELFPAY ==
--- NOTE | 2020-03-15 06:55 | W.COLOREPORT ---
Date of service: 03/15/20 Time of Service: 08:45 Colonoscopy Report Date of procedure: 03/15/20 Pre-op diagnosis general: Abdominal pain Post-op diagnosis procedure note: same Procedure: Colonoscopy Surgeon: Vannessa Puga Anesthesia proc note operative: other (General/ASA 2/Nafisa Mcduffie, KEILA) Estimated blood loss (mL): 0 Pathology: none sent Complications: None Disposition: same day Indications: 29 y/o female with history of GERD presents for colonoscopy pre-op after an ER visit on 03/08/20 for severe abdominal pain and nausea. Her last Colonoscopy was reported to have been completed in 2012, which she reports was unremarkable. She denies a family history of colon cancer. She reports a family history of Chron's disease in her father. She reports her abdominal pain is located in her lower abdomen and radiates from her belly button to the RLQ. This discomfort is associated with nausea without vomiting. She denies changes in her bowel habits to include bloody or dark colored stools. She denies constitutional symptoms. Denies use of marijuana or any other recreational or illegal drugs Prep: Miralax/Dulcolax Procedure Start Time: 08:45 Procedure End Time: 09:05 Retraction Time: 12 minutes Findings: Normal colonoscopy Procedure Description: After informed consent was obtained the patient was taken to the procedure room and placed in a left decubitous position. Monitors were applied and a time out was done. The patients name, date of , procedure, allergies to medications and metal in their body was reviewed. The patient was then sedated. Once sedated and comfortable a rectal exam was done. External exam was normal. Internal exam revealed a normal sphincter tone and no palpable masses. The scope was then introduced and retro-flexed. No internal hemorrhoids were identified. The scope was then advanced to the cecum without difficulty. The ileocecal valve and appendiceal orifice were identified. The prep was good. The scope was then slowly retracted over 12 minutes back into the rectum. There were no polyps, no diverticula and no inflammation noted. The scope was removed and the patient was woken up and taken back to Same day surgery in stable condition. The patient tolerated the procedure well and there were no immediate complications. Follow up: The patient should follow up at age 51 unless they develop changes in bowel habits or other new gastrointestinal complaints.
--- NOTE | 2020-03-15 06:57 | W.PM.DSUDISC ---
Discharge Plan Disposition Patient Disposition: HOME Condition: Good Discharge Details Reason For Visit: Colonoscopy Attending Provider: Vannessa Puga Primary Care Provider: DAVID CAI Home Meds and New Rx's Prescriptions: Continued omeprazole 20 mg capsule,delayed release(DR/EC) 20 mg PO DAILY RF: 0 bupropion HCl 150 MG tablet extended release 12 hr 150 mg PO DAILY RF: 0 Tension Headache 500-65 mg Tablet 2 tab PO PRN PRNRF: 0 dicyclomine 10 mg capsule 10 mg PO BID Qty: 20 RF: 0 citalopram 40 MG tablet 1 tab PO DAILY RF: 0 zonisamide [Zonegran] 100 MG capsule 1 cap PO DAILY RF: 0 Nexplanon 68 MG implant 1 unit DAILY RF: 0 ibuprofen 200 MG tablet 1 tab PO PRN PRNRF: 0 Discontinued polyethylene glycol 3350 17 gram/dose powder 238 g PO ONCE Qty: 238 RF: 0 bisacodyl [Dulcolax (bisacodyl)] 5 mg tablet,delayed release (DR/EC) 5 mg PO ONCE Qty: 4 RF: 0 Discharge Instructions Additional Instructions: Findings: Normal large bowel Follow up: at age 51 Please call if you develop: fevers >101.5 Nausea or Vomiting Abdominal pain that is not transient DAY SURGERY UNIT POST ENDOSCOPY INSTRUCTIONS 1. Because there will be medication in your system for the next 24 hours, you may feel a little sleepy. Your coordination will be affected. Therefore: a. Do not drive or operate dangerous equipment for 24 hours. b. Do not drink alcohol beverages for 24 hours (not even beer). c. Plan to go home and rest for the day. 2. Generally there are no restrictions on your activity after a day or so has gone by, but you may feel a bit fatigued for a few days. 3 After you arrive home you may have a light meal and return to a normal diet as you can tolerate it without feeling sick to your stomach. 4. After surgery, you may feel pain or discomfort. This should be only transient, but if it persists please contact your doctor. 5. If there are any questions regarding the findings of your procedure, please feel free to contact your doctor. 6. If you are unable to contact your doctor with a problem, contact the hospital at [phone]. 7. Continue all your regular medications unless directed otherwise. I understand the above instructions and have no questions. Signature of Patient or Responsible Adult Escort Date/Time Name of Responsible Adult Escort Signature of Nurse Date/Time Activity:: Activity as Tolerated Diet:: As Tolerated Discharge Orders Discharge Orders: Discharge Order (Routine); Ordered 03/15/20 Ordered By: Vannessa Puga
[2020-03-15 07:50] VITALS: BP 103/67; PULSE 81; RESP 18; TEMP 36.6; O2SAT 98
[2020-03-15] MEDS: Lactated Ringers 1,000 ML 80 ML IV (08:19)
[2020-03-15 09:35] VITALS: BP 91/53; PULSE 58; RESP 16; TEMP 36.5; O2SAT 97
== END 2020-03-15 09:45 | disposition home or self-care (01) ==
PROVIDERS: PCP Nurse Practitioner Family; Visit Provider Surgery
PROC: 0DJD8ZZ Inspection of Lower Intestinal Tract, Via Natural or Artificial Opening Endoscopic (ICD-10-PCS; CPT 45378; principal; 2020-03-15 09:30)
DX: R10.9 Unspecified abdominal pain (principal); Z83.79 Family history of other diseases of the digestive system
CPT/HCPCS: 45378; 81025; J2704

== ENCOUNTER 2020-05-17 13:12 | Outpatient (REF) | payer MEDICAID, SELFPAY ==
[2020-05-21 17:31] LABS: Patient Race White; SARS-CoV-2 RNA Undetected (Undetected); SARS-CoV-2 Specimen Source Nasal
== END 2020-05-17 13:32 ==
LOC: NCHCN 13:12
PROVIDERS: PCP Nurse Practitioner Family; Visit Provider Nurse Practitioner Family
DX: J06.9 Acute upper respiratory infection, unspecified (principal)
CPT/HCPCS: U0003

== ENCOUNTER 2021-02-06 12:54 | Outpatient (REF) | payer MEDICAID, SELFPAY ==
--- NOTE | 2021-02-06 10:30 | PAPFT_PTH ---
PATIENT: Sarita Virgen LOC: [facility]#:[id number] AGE/SX: 30/F ROOM: RE02/06/[address]: Beba Paiz : 1990 BED: DIS: 02/06/2021 SPEC #: [id number] RECD: 02/06/21 16:29 STATUS: NYA REMagaly #: [id number] CHARLES: 02/06/21 10:[address]: Beba Edurado DEPT: [facility] Cytology RECD BY: Rebecca Storey Tissues: 1 - CX/ENDOCX FOR PAP SMEARS Procedures: PAP THIN PREP/UVM Screening Comments: [id number] (CHLAMYDIA/GC)
[2021-02-07 15:22] LABS: Chlamydia Result Negative (Negative); GC Result Negative (Negative)
== END 2021-02-06 12:55 | disposition home or self-care (01) ==
LOC: NCHCN 12:54
PROVIDERS: PCP Nurse Practitioner Family; Visit Provider Nurse Practitioner Family
DX: Z12.4 Encounter for screening for malignant neoplasm of cervix (principal); R87.612 Low grade squamous intraepithelial lesion on cytologic smear of cervix (LGSIL); Z11.3 Encounter for screening for infections with a predominantly sexual mode of transmission
CPT/HCPCS: 87491; 87591; 88142

== ENCOUNTER 2021-03-26 21:30 | Outpatient (REF) | payer MEDICAID, SELFPAY ==
[2021-03-26 22:38] LABS: ALT 50 U/L (14-59); AST 27 U/L (15-37); Albumin 3.7 g/dL (3.4-5.0); Alkaline Phosphatase 79 U/L (46-116); Anion Gap 9.6 mmol/L (3-11); BUN 4 mg/dL (7-18); Bilirubin, Total 0.3 mg/dL (0.2-1.0); CO2 25.4 mmol/L (21.0-32.0); CREATININE 0.8 mg/dL (0.55-1.02); Calcium 8.9 mg/dL (8.5-10.1); Chloride 104 mmol/L (98-107); Glucose 114 mg/dL (74-106); Potassium 4.1 mmol/L (3.5-5.1); Sodium 139 mmol/L (136-145); Total Protein 7.2 g/dL (6.4-8.2)
== END 2021-03-26 21:31 | disposition home or self-care (01) ==
LOC: NCHCN 21:30
PROVIDERS: PCP Nurse Practitioner Family; Visit Provider Family Medicine
DX: R10.11 Right upper quadrant pain (principal)
CPT/HCPCS: 80053

== ENCOUNTER 2022-06-14 00:13 | Emergency (ER) | payer MEDICAID, SELFPAY ==
[2022-06-14 00:17] VITALS: BP 138/76; PULSE 83; RESP 18; TEMP 36.5; O2SAT 100
--- NOTE | 2022-06-14 01:58 | W.ED.GENAD ---
Discharge Plan Disposition Patient Disposition: Home Condition: Stable Discharge Details Clinical Impression: Pain in tooth Primary Care Provider: Beba Eduardo ED Provider: Pedro Pablo Chin Home Meds and New Rx's Prescriptions: New amoxicillin 500 mg tablet 500 mg PO BID Qty: 20 0RF Continued omeprazole 20 mg capsule,delayed release(DR/EC) 20 mg PO DAILY bupropion HCl 150 MG tablet extended release 12 hr 150 mg PO DAILY Tension Headache 500-65 mg Tablet 2 tab PO PRN PRN dicyclomine 10 mg capsule 10 mg PO BID Qty: 20 0RF citalopram 40 MG tablet 1 tab PO DAILY zonisamide [Zonegran] 100 MG capsule 1 cap PO DAILY Label Comments: takes for migraines Nexplanon 68 MG implant 1 unit DAILY ibuprofen 200 MG tablet 1 tab PO PRN PRN Discharge Instructions Instructions: Toothache (ED) Additional Instructions: follow up with your dentist as soon as possible if you develop severe worsening pain, difficulty swallowing liquids or difficulty breathing return to the emergency department Medical Decision Making 31 yo female comes in with 2 weeks of right lower posterior molar pain. She states she has had chronic issues with this tooth. She denies fevers, chills, difficulty swallowing or breathing. she arrives stable speaking in clear sentences swallowing normally. She has no submandibular selling, normal posterior pharynx and midline uvula. She has an eroded right posterior molar that has no associated swelling around it, no obvious abscess. Suspect pulpitis given the degree of erosion, no findings to suggest ludwigs. Will place on amoxicillin and advised to f/u with dentist, return precautions given Differential Diagnosis Differential Diagnosis: caries, pulpitis HPI General Mode of arrival: ambulatory. Date/Time Provider Initiated Documentation: 06/14/22 00:24. Limitations to Documentation: no limitations. Information obtained by: patient. History of Present Illness 31 year old F presents to the emergency department with the chief complaint of dental pain, described as moderate, Quality is described as aching, Patient started experiencing this week(s) (2) and it has been constant. No relieving factors improve symptom(s), No exacerbating factors reported . Patient notes no other symptoms.. Related Data Home Medications Medication Instructions Recorded Confirmed citalopram 40 mg tablet 1 tab PO DAILY 10/05/17 03/15/20 etonogestrel 68 mg subdermal 1 unit DAILY 10/05/17 03/13/20 implant (Nexplanon) ibuprofen 200 mg tablet 1 tab PO PRN PRN 10/05/17 03/13/20 zonisamide 100 mg capsule 1 cap PO DAILY 10/05/17 03/15/20 (Zonegran) bupropion HCl 150 mg tablet,12 hr 150 mg PO DAILY 02/18/18 03/15/20 sustained-release acetaminophen-caffeine 500 mg-65 2 tab PO PRN PRN 06/28/18 03/13/20 mg tablet (Tension Headache) dicyclomine 10 mg capsule 10 mg PO BID #20 caps 03/08/20 03/15/20 omeprazole 20 mg capsule,delayed 20 mg PO DAILY 03/10/20 03/15/20 release amoxicillin 500 mg tablet 500 mg PO BID #20 tabs 06/14/22 Previous Rx's Medication Instructions Recorded dicyclomine 10 mg capsule 10 mg PO BID #20 caps 03/08/20 amoxicillin 500 mg tablet 500 mg PO BID #20 tabs 06/14/22 Allergies Allergy/AdvReac Type Severity Reaction Status Date / Time metronidazole [From Flagyl] Allergy Severe Hives Unverified 03/15/20 07:56 vancomycin Allergy Severe Hives Unverified 03/15/20 07:56 adhesive tape Allergy Mild Hives Unverified 03/15/20 07:56 General Stated Complaint: DentalOral JAYE: 4 Review of Systems All systems reviewed & are unremarkable except as noted in HPI and below Constitutional Constitutional: Denies chills and Denies fever(s) ENT Ears, Nose, Mouth, and Throat: Denies change in voice Cardiovascular Cardiovascular: Denies chest pain and Denies dyspnea Respiratory Respiratory: Denies cough and Denies dyspnea Gastrointestinal Gastrointestinal: Denies abdominal pain, Denies nausea and Denies vomiting PFSH All Active Problems (Updated 06/14/22 @ 02:05 by Pedro Pablo Chin MD) Pain in tooth (Acute) Migraine headache (Chronic) Depression (Chronic ~01/2018) Suicidal, transferred to [facility] for further psych eval Medical History (Updated 06/14/22 @ 02:05 by Pedro Pablo Chin MD) Hx of blood clots Per pt. states hx of a blood clot behind her eye 2017 Hx of meningitis 2017 Surgical History History of colonoscopy Social History Smoking/Tobacco Use Status: Current every day Tobacco Type: cigarettes Smoking risk assessment performed?: Yes Alcohol Intake: never Drug use: Never Substance use type: does not use Do you feel safe at home: Yes Do you feel safe in your relationship?: Yes History History Para Hx # Term Pregnancies 1 Multiple births Hx # Pregnancies Ectopic pregnancies AB induced Hx Number of Living Children AB spontaneous Exam Const General: no acute distress Orientation: alert HENMT Head: normal to inspection Ears: external ears normal General nose exam: external nose normal Mouth: moist mucous membranes Eyes General: appearance normal, both eyes and all related structures Neck Neck: normal visual inspection Resp Effort & Inspection: normal respiratory effort and able to speak in complete sentences Cardio Rate: regular rate Skin General skin exam: no rashes or lesions noted Neuro General: patient alert and patient oriented x3 Extrem General: normal to inspection Psych Mental Status: mental status grossly normal Course Vital Signs Vital signs: Vital Signs Temperature 36.5 C 06/14/22 00:17 Pulse 83 06/14/22 00:17 Respiratory Rate 18 06/14/22 00:17 Blood Pressure 138/76 06/14/22 00:17 Pulse Oximetry 100 06/14/22 00:17 Temperature 36.5 C 06/14/22 00:17 Temperature Source Tympanic 06/14/22 00:17 Pulse 83 06/14/22 00:17 Respiratory Rate 18 06/14/22 00:17 Respiratory Effort 06/14/22 00:22 Blood Pressure 138/76 06/14/22 00:17 Blood Pressure Position Sitting 06/14/22 00:17 Pulse Oximetry 100 06/14/22 00:17 Oxygen Delivery Method Room Air 06/14/22 00:17 Oxygen Flow Rate 0 06/14/22 00:17 End Tidal Co2 9 06/14/22 00:17 Pain Level 9 06/14/22 00:23 PAWSS Have you Been Recently Intoxicated or Drunk Within the Last 30 days?: No Have you Ever Experienced Previous Episodes of Alcohol Withdrawal?: No Have you ever Experienced Withdrawal Seizures?: No Have you ever Experienced Delirium Tremens(DT)s?: No Have you ever undergone Alcohol Rehabilitation Treatment (i.e, inpt ot outpatient treatment programs)?: No Have you ever Experienced Blackouts?: No Have you ever Combined Alcohol with other Downers within the last 90 days?: No Have you ever Combined Alcohol with any other Substance of Abuse during the last 90 days?: No Positive Blood Alcohol level on Presentation? [PCS.BAL]: No Evidence of Increased Autonomic Activity (i.e. HR>120, tremor, sweating, agitation, nausea)?: No Result: 0
[2022-06-14] MEDS: Amoxicillin 500 MG CAP PO (02:07)
[2022-06-14] MEDS: Benzocaine 20% Gel 30 GM JAR MM (02:09)
[2022-06-14 02:13] VITALS: BP 132/76; PULSE 84; RESP 16; O2SAT 98
== END 2022-06-14 02:13 | disposition home or self-care (01) ==
PROVIDERS: Emergency Provider Emergency Medicine; PCP Nurse Practitioner Family
DX: K08.89 Other specified disorders of teeth and supporting structures (principal)
CPT/HCPCS: 99283

== ENCOUNTER 2022-07-25 15:09 | Outpatient (REF) | payer MEDICAID, SELFPAY ==
--- NOTE | 2022-07-25 11:45 | PAPFT_PTH ---
PATIENT: Sarita Virgen LOC: [facility]#:[id number] AGE/SX: 31/F ROOM: RE07/25/[address]: Beba Paiz : 1990 BED: DIS: 07/25/2022 SPEC #: [id number] RECD: 07/26/22 12:45 STATUS: NYA YANES #: [id number] CHARLES: 07/25/22 11:[address]: Beba Eduardo DEPT: [facility] Cytology RECD BY: Rebecca Storey Tissues: 1 - CX/ENDOCX FOR PAP SMEARS Procedures: PAP THIN PREP/UVM Screening HPV DNA PROBE Comments: [id number] (CHLAMYDIA/GC)
[2022-07-25 21:14] LABS: Hemoglobin A1C 5.4 % (<5.7)
[2022-07-25 21:27] LABS: Anion Gap 9.7 mmol/L (3-11); BUN 9 mg/dL (7-18); CO2 26.3 mmol/L (21.0-32.0); CREATININE 0.9 mg/dL (0.55-1.02); Calcium 9.7 mg/dL (8.5-10.1); Calculated LDL 97 mg/dL (<100); Chloride 103 mmol/L (98-107); Cholesterol 158 mg/dL (<200); Glucose 102 mg/dL (74-106); HDL Cholesterol 41 mg/dL (40-60); Sodium 139 mmol/L (136-145); TSH 1.34 uIU/mL (0.36-3.74); Triglyceride 103 mg/dL (<150)
[2022-07-29 14:20] LABS: Chlamydia Result Negative (Negative); GC Result Negative (Negative)
== END 2022-07-25 15:10 | disposition home or self-care (01) ==
LOC: NCHCN 15:09
PROVIDERS: PCP Nurse Practitioner Family; Visit Provider Nurse Practitioner Family
DX: E78.5 Hyperlipidemia, unspecified (principal); R73.03 Prediabetes; E66.8 Other obesity; Z11.3 Encounter for screening for infections with a predominantly sexual mode of transmission; Z12.4 Encounter for screening for malignant neoplasm of cervix; Z13.29 Encounter for screening for other suspected endocrine disorder; R87.612 Low grade squamous intraepithelial lesion on cytologic smear of cervix (LGSIL); Z11.51 Encounter for screening for human papillomavirus (HPV); Z87.42 Personal history of other diseases of the female genital tract
CPT/HCPCS: 80048; 80061; 87491; 87591; 88142; 83036; 84443; 87624

== ENCOUNTER 2022-12-19 21:48 | Emergency (ER) | payer MEDICAID, SELFPAY ==
[2022-12-19 21:54] VITALS: BP 133/73; PULSE 72; RESP 18; TEMP 36.7; O2SAT 99
--- NOTE | 2022-12-19 22:00 | DI.RAD_ITS ---
Exam(s) XR LUMBAR SPINE COMPLETE EXAM: XR LUMBAR SPINE COMPLETE CLINICAL HISTORY: low lumbar back pain. TECHNIQUE: 2D digital imaging was performed of the lumbar spine. Five images were obtained. AP, la teral, right oblique, left oblique and L5-S1 spot views were obtained. COMPARISON: No exams were available for comparison FINDINGS: BONES: No fracture or destructive lesion. Vertebral bodies are unremarkable. No facet hypertrophy franca ntified. DISKS: Intervertebral disc spaces are maintained. ALIGNMENT: Lumbar spinal alignment is within normal limits. No spondylolysis or spondylolisthesis. SOFT TISSUE: Normal. IMPRESSION: Unremarkable radiographs of the lumbar spine. DATA REPOSITORY: RADIATION DOSE DELIVERED:
[2022-12-19] MEDS: predniSONE 20 MG TAB 60 MG PO (22:11)
[2022-12-19] MEDS: Acetaminophen 500 MG TAB 1000 MG PO (22:11)
[2022-12-19] MEDS: Ketorolac 30 MG/ML VIAL IM (22:12)
[2022-12-19] MEDS: Cyclobenzaprine 10 MG TAB PO (22:12)
--- NOTE | 2022-12-19 22:31 | ED.GENADUL_ITS ---
Discharge Plan Disposition Patient Disposition: Home Condition: Good Discharge Details Clinical Impression: Acute lumbar radiculopathy, Back pain Primary Care Provider: Beba Eduardo ED Provider: Brayden Carter Home Meds and New Rx's Prescriptions: New cyclobenzaprine 10 mg tablet 10 mg PO TID Qty: 14 0RF lidocaine [Lidoderm] 5 % adhesive patch,medicated 1 patch Topical Q24H Qty: 15 0RF prednisone 50 mg tablet 50 mg PO DAILY Qty: 5 0RF No Action omeprazole 20 mg capsule,delayed release(DR/EC) 20 mg PO DAILY bupropion HCl 150 MG tablet extended release 12 hr 150 mg PO DAILY citalopram 40 MG tablet 1 tab PO DAILY zonisamide [Zonegran] 100 MG capsule 1 cap PO DAILY Patient Comments: takes for migraines Nexplanon 68 MG implant 1 unit DAILY ibuprofen 200 MG tablet 1 tab PO PRN PRN Discharge Instructions Instructions: Back Pain (ED) Additional Instructions: At this time your signs and symptoms are clinically consistent with a back sprain. This can cause significant pain and take a fair bit of time to heal. I expect 1 to 2 months for potential resolution. In the meantime do not lift anything greater than 5 pounds for the next 2 weeks. Avoid any significant vigorous physical activity. Perform easy gentle regular activities at home without any significant bending or lifting. Please take the steroids as directed. You have been given a prescription for Lidoderm patch. If your insurance does not cover this you can get [id number] Lidoderm patches at 4% which are almost just as effective. Please take the Flexeril as directed but do not take it when driving or operating any vehicles or heavy machinery, swimming, taking long baths, or operating firearms. Please use a heating pad as often as possible on your back. Perform daily gentle stretches on your back. Please continue to take the Tylenol and Motrin. You can take 1000 mg of Tylenol every 6 hours and 600 mg of ibuprofen every 6 hours. If you notice any worsening of your symptoms, or any new symptoms such as vomiting, diarrhea, fever, chills, shortness of breath, chest pain, numbness or tingling in your groin or legs, weakness in your legs, loss of control for your bowels or bladder, or fainting , please return immediately to the emergency department for reevaluation. Please follow up with your primary care provider as soon as possible for reassessment and reevaluation. As always, it was a pleasure participating in your medical care today. Stand Alone Forms: Physical Therapy Referral, Work Release Referrals: Beba Eduardo [Primary Care Provider] - Medical Decision Making 32-year-old female with a past medical history of meningitis and blood clots presents today for evaluation of low back pain. 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 Pain continued and would get slightly better with NSAIDs and stretching. Unfortunately today she was playing softball, she slipped twisted and fell on her back. She had extreme back pain at that time. Pain has slightly improved since then but still continues. She admits to shooting pain down her buttock and down her legs bilaterally. Worse when she moves or bends, improved by not moving. She denies any numbness or tingling. Patient denies any saddle anesthesia, numbness or tingling in the groin, change in sensation when wiping. Patient denies any change in sensation during sexual intercourse, bowel or bladder incontinence, leakage, or retention. Patient denies any weakness in the lower extremities, or imbalance. Denies any IV or illicit drug use. Exam demonstrates a well-appearing but slightly stiff appearing female. Mild tenderness over the right paraspinal space, no midline tenderness. Tenderness appears to be located in the lumbar region as well as some mild tenderness over the lumbosacral junction. Pain is certainly made worse with straight leg raise on both legs. She has normal intact DTRs, sensation and movement. Patient demonstrates good rectal tone, and she shows no signs or symptoms concerning for quada equina syndrome at this time clinically. Suspect mild radiculopathy and paraspinal spasm. Will give Flexeril Lidoderm Toradol Tylenol and prednisone. Will get x-rays to rule out acute but less likely fracture. Will monitor closely and reassess. No indication for emergent MRI imaging at this time. 11:21 PM On reassessment patient is feeling much better. Repeat exam continues to show no signs of cauda equina syndrome. Symptoms and history inconsistent with spinal epidural abscess. Symptoms at this time appear clinically consistent with mild lumbar radiculopathy and mild back strain. Patient feels comfortable going home. I have extensively reviewed the treatment plan and discharge instructions with the patient. I have addressed all patient concerns at this time. The patient was made aware of what symptoms to monitor for that would warrant a return to the emergency department. Discussed the plan with the patient, they demonstrate verbal understanding and agreement with our assessment and plan at this time. The documentation in this chart was dictated using [employer] dictation software. Please excuse any dictation errors. FINDINGS: Bones/joints: Normal. No acute fracture. Normal alignment. Soft tissues: Unremarkable. IMPRESSION: No acute findings. Thank you for allowing us to participate in the care of your patient. Dictated and Authenticated by: Pedro Pablo Moore MD 12/19/2022 11:10 PM Eastern Time ([place] & [place]) HPI General Date/Time Provider Initiated Documentation: 12/19/22 21:53 . HPI Narrative: 32-year-old female with a past medical history of meningitis and blood clots presents today for evaluation of low back pain. 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 Pain continued and would get slightly better with NSAIDs and stretching. Unfortunately today she was playing softball, she slipped twisted and fell on her back. She had extreme back pain at that time. Pain has slightly improved since then but still continues. She admits to shooting pain down her buttock and down her legs bilaterally. Worse when she moves or bends, improved by not moving. She denies any numbness or tingling. Patient denies any saddle anesthesia, numbness or tingling in the groin, change in sensation when wiping. Patient denies any change in sensation during sexual intercourse, bowel or bladder incontinence, leakage, or retention. Patient denies any weakness in the lower extremities, or imbalance. Denies any IV or illicit drug use. Related Data Home Medications Medication Instructions Recorded Confirmed citalopram 40 mg tablet 1 tab PO DAILY 10/05/17 12/19/22 etonogestrel 68 mg subdermal 1 unit DAILY 10/05/17 12/19/22 implant (Nexplanon) ibuprofen 200 mg tablet 1 tab PO PRN PRN 10/05/17 12/19/22 zonisamide 100 mg capsule 1 cap PO DAILY 10/05/17 12/19/22 (Zonegran) bupropion HCl 150 mg tablet,12 hr 150 mg PO DAILY 02/18/18 12/19/22 sustained-release omeprazole 20 mg capsule,delayed 20 mg PO DAILY 03/10/20 12/19/22 release cyclobenzaprine 10 mg tablet 10 mg PO TID #14 tabs 12/19/22 lidocaine 5 % topical patch 1 patch topical Q24H #15 ea 12/19/22 (Lidoderm) prednisone 50 mg tablet 50 mg PO DAILY #5 tabs 12/19/22 Previous Rx's Medication Instructions Recorded cyclobenzaprine 10 mg tablet 10 mg PO TID #14 tabs 12/19/22 lidocaine 5 % topical patch 1 patch topical Q24H #15 ea 12/19/22 (Lidoderm) prednisone 50 mg tablet 50 mg PO DAILY #5 tabs 12/19/22 Allergies Allergy/AdvReac Type Severity Reaction Status Date / Time metronidazole [From Flagyl] Allergy Severe Hives Unverified 12/19/22 22:02 vancomycin Allergy Severe Hives Unverified 12/19/22 22:02 adhesive tape Allergy Mild Hives Unverified 12/19/22 22:02 General Stated Complaint: Nk/Back Pain JAYE: 3 Review of Systems All systems reviewed & are unremarkable except as noted in HPI and below PFSH All Active Problems (Updated 12/19/22 @ 23:18 by Brayden Carter DO) Acute lumbar radiculopathy (Acute) Back pain (Acute) Migraine headache (Chronic) Depression (Chronic ~01/2018) Suicidal, transferred to [facility] for further psych eval Medical History Hx of blood clots Per pt. states hx of a blood clot behind her eye 2017 Hx of meningitis 2017 Surgical History History of colonoscopy Social History Smoking/Tobacco Use Status: Current every day Tobacco Type: smokeless tobacco Smoking risk assessment performed?: Yes Alcohol Intake: never Drug use: Never Substance use type: does not use Do you feel safe at home: Yes Do you feel safe in your relationship?: Yes History History Para Hx # Term Pregnancies 1 Multiple births Hx # Pregnancies Ectopic pregnancies AB induced Hx Number of Living Children AB spontaneous Exam Narrative Exam Narrative: 1.Const: Well-nourished, Well-developed, appearing stated age 2.Eyes: PERRL, no conjunctival injection, and symmetrical lids. 3.ENT: Atraumatic external nose and ears. Moist MM. Neck: Symmetric, trachea midline, No thyromegaly. 4.CVS: +S1/S2, No murmurs or gallops. Peripheral pulses 2+ and equal in all extremities. Brisk capillary refill in all extremities. 5.RESP: Unlabored respiratory effort. Clear to auscultation bilaterally. No wheezes rales or rhonchi 6.GI: Soft, Nontender/Nondistended, No hepatosplenomegaly. No guarding or rebound. 7.MSK: Normocephalic/Atraumatic, Extremities w/o deformity or ttp No cyanosis or clubbing, Normal movement of all extremities No midline tenderness to palpation over the CT spine. However the patient does have mild tenderness in the right paraspinal aspect of the lumbar spine. Mild tenderness at the lumbosacral junction. Normal ROM in flexion, extension, side bend, and rotation. Patient has +5 out of 5 strength in the lower extremities in dorsiflexion and plantarflexion, knee flexion and extension, hip flexion and extension. Normal strength for dorsiflexion and plantar flexion of the great toe bilaterally. There is +2 over 2 dorsalis pedis pulses bilaterally. There is normal sensation to the skin with light touch at the foot, knee, and hip. Normal saddle sensation. Good sensation over the deep sural nerve area bilaterally. Rectal exam demonstrates good rectal tone with excellent katherine-rectal sensation. Reflexes are +2 over 4 in the patellar reflex bilaterally. +5 out of 5 strength in the medial, ulnar, radial nerve distribution bilaterally in the hands as well as intact light touch sensation to these dermatomes on the hands 8.Skin: Warm, Dry. No rashes or lesions. 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 Sensation grossly intact, no focal neurologic deficits. 10.Psych: (AAO) x3. Appropriate mood and affect Course Vital Signs Vital signs: Vital Signs Temperature 36.7 C 12/19/22 21:54 Pulse 72 12/19/22 21:54 Respiratory Rate 18 12/19/22 21:54 Blood Pressure 133/73 12/19/22 21:54 Pulse Oximetry 99 12/19/22 21:54 Temperature 36.7 C 12/19/22 21:54 Temperature Source Oral 12/19/22 21:54 Pulse 72 12/19/22 21:54 Respiratory Rate 18 12/19/22 21:54 Respiratory Effort Normal 12/19/22 22:01 Blood Pressure 133/73 12/19/22 21:54 Pulse Oximetry 99 12/19/22 21:54 Oxygen Delivery Method Room Air 12/19/22 21:54 Oxygen Flow Rate 0 12/19/22 21:54
--- NOTE | 2022-12-19 23:10 | DI.VRAD_ITS ---
PROCEDURE INFORMATION: Exam: XR Lumbosacral Spine Exam date and time: 12/19/2022 10:29 PM Age: 32 years old Clinical indication: Low back pain TECHNIQUE: Imaging protocol: Radiologic exam of the lumbosacral spine. Views: 4 or 5 views. COMPARISON: CT ABDOMEN PELVIS W 03/08/2020 8:59 PM FINDINGS: Bones/joints: Normal. No acute fracture. Normal alignment. Soft tissues: Unremarkable. IMPRESSION: No acute findings. Dictated and Authenticated by: Pedro Pablo Moore MD. Ordering:BERT Owen MD
== END 2022-12-19 23:38 | disposition home or self-care (01) ==
PROVIDERS: Emergency Provider Student in an Organized Health Care Education/Training Program; PCP Nurse Practitioner Family
DX: M54.50 Low back pain, unspecified (principal); S33.5XXA Sprain of ligaments of lumbar spine, initial encounter; M54.16 Radiculopathy, lumbar region; W18.39XA Other fall on same level, initial encounter; Y93.64 Activity, baseball; Y99.9 Unspecified external cause status
CPT/HCPCS: 96372; 99284; 72110; 99283; J1885; J7512

== ENCOUNTER 2023-06-17 16:20 | Emergency (ER) | payer SELFPAY ==
[2023-06-17 16:24] VITALS: BP 153/82; PULSE 69; TEMP 36.8; O2SAT 99
--- NOTE | 2023-06-17 16:59 | ED.GENADUL_ITS ---
Discharge Plan Disposition Patient Disposition: Home Condition: Stable Discharge Details Clinical Impression: Menses, irregular Primary Care Provider: Beba Eduardo ED Provider: Dianne Milner Home Meds and New Rx's Prescriptions: Continued omeprazole 20 mg capsule,delayed release(DR/EC) 20 mg PO DAILY bupropion HCl 150 MG tablet extended release 12 hr 150 mg PO DAILY cyclobenzaprine 10 mg tablet 10 mg PO TID Qty: 14 0RF lidocaine [Lidoderm] 5 % adhesive patch,medicated 1 patch Topical Q24H Qty: 15 0RF prednisone 50 mg tablet 50 mg PO DAILY Qty: 5 0RF citalopram 40 MG tablet 1 tab PO DAILY zonisamide [Zonegran] 100 MG capsule 1 cap PO DAILY Patient Comments: takes for migraines Nexplanon 68 MG implant 1 unit DAILY ibuprofen 200 MG tablet 1 tab PO PRN PRN Discharge Instructions Instructions: Abnormal (Dysfunctional) Uterine Bleeding (ED) Referrals: Beba Eduardo [Primary Care Provider] - Medical Decision Making Urine is negative. Patient is hemodynamically stable. , I did draw a quantitative hCG and ABO type. She will not need to wait for these results we will call if necessary. She is stable and ready for discharge to home she will follow-up with women's health or her primary care provider if needed HPI General Mode of arrival: ambulatory . Date/Time Provider Initiated Documentation: 06/17/23 16:26 . Limitations to Documentation: no limitations . Information obtained by: patient . HPI Narrative: This is a 32-year-old female patient who had her Nexplanon removed May 13 due to painful menstrual cramping. She did have a period at that time. She states that she is not trying get but has not been using contraceptive since. She states she took a test 2 days ago that was positive. She noted today some vaginal bleeding so presented to urgent care for evaluation. According to her they referred her here for evaluation. She has had no dizziness chest pain or shortness of breath. She has been eating and drinking well. Related Data Home Medications Medication Instructions Recorded Confirmed citalopram 40 mg tablet 1 tab PO DAILY 10/05/17 12/19/22 etonogestrel 68 mg subdermal 1 unit DAILY 10/05/17 12/19/22 implant (Nexplanon) ibuprofen 200 mg tablet 1 tab PO PRN PRN 10/05/17 12/19/22 zonisamide 100 mg capsule 1 cap PO DAILY 10/05/17 12/19/22 (Zonegran) bupropion HCl 150 mg tablet,12 hr 150 mg PO DAILY 02/18/18 12/19/22 sustained-release omeprazole 20 mg capsule,delayed 20 mg PO DAILY 03/10/20 12/19/22 release cyclobenzaprine 10 mg tablet 10 mg PO TID #14 tabs 12/19/22 lidocaine 5 % topical patch 1 patch topical Q24H #15 ea 12/19/22 (Lidoderm) prednisone 50 mg tablet 50 mg PO DAILY #5 tabs 12/19/22 Previous Rx's Medication Instructions Recorded cyclobenzaprine 10 mg tablet 10 mg PO TID #14 tabs 12/19/22 lidocaine 5 % topical patch 1 patch topical Q24H #15 ea 12/19/22 (Lidoderm) prednisone 50 mg tablet 50 mg PO DAILY #5 tabs 12/19/22 Allergies Allergy/AdvReac Type Severity Reaction Status Date / Time metronidazole [From Flagyl] Allergy Severe Hives Unverified 12/19/22 22:02 vancomycin Allergy Severe Hives Unverified 12/19/22 22:02 adhesive tape Allergy Mild Hives Unverified 12/19/22 22:02 General Stated Complaint: [employer] JAYE: 3 Review of Systems All systems reviewed & are unremarkable except as noted in HPI and below PFSH All Active Problems (Updated 06/17/23 @ 17:09 by Dianne Milner NP) Menses, irregular (Acute) Migraine headache (Chronic) Depression (Chronic ~01/2018) Suicidal, transferred to [facility] for further psych eval Medical History Hx of blood clots Per pt. states hx of a blood clot behind her eye 2017 Hx of meningitis 2017 Surgical History History of colonoscopy Social History Smoking/Tobacco Use Status: Current every day Tobacco Type: smokeless tobacco Smoking risk assessment performed?: Yes Alcohol Intake: never Drug use: Never Substance use type: does not use Do you feel safe at home: Yes Do you feel safe in your relationship?: Yes History History Para Hx # Term Pregnancies 1 Multiple births Hx # Pregnancies Ectopic pregnancies AB induced Hx Number of Living Children AB spontaneous Exam Narrative Exam Narrative: Obese female of stated age sitting on the stretcher affect is flat. Her skin is pink warm dry well-perfused she is in no acute distress head is atraumatic oral mucosas moist cardiovascular regular rate and rhythm respirations are even and unlabored she moves all extremities skin with no rashes or lesions. Course Vital Signs Vital signs: Vital Signs Temperature 36.8 C 06/17/23 16:24 Pulse 69 06/17/23 16:24 Blood Pressure 153/82 H 06/17/23 16:24 Pulse Oximetry 99 06/17/23 16:24 Temperature 36.8 C 06/17/23 16:24 Temperature Source Temporal Artery Scan 06/17/23 16:24 Pulse 69 06/17/23 16:24 Respiratory Effort Normal, Non-Labored 06/17/23 16:51 Blood Pressure 153/82 H 06/17/23 16:24 Blood Pressure Position Sitting 06/17/23 16:24 Pulse Oximetry 99 06/17/23 16:24 Oxygen Delivery Method Room Air 06/17/23 16:24 Oxygen Flow Rate 0 06/17/23 16:24 Lab/Test Results Lab/Test Results: POC- Test(urine) Negative
[2023-06-17 17:14] LABS: HCG Quant, Pregnancy 3 mIU/mL (1-3)
== END 2023-06-17 17:33 | disposition home or self-care (01) ==
PROVIDERS: Emergency Provider Nurse Practitioner Acute Care; PCP Nurse Practitioner Family
DX: N92.6 Irregular menstruation, unspecified (principal); F17.210 Nicotine dependence, cigarettes, uncomplicated
CPT/HCPCS: 36415; 81025; 86900; 86901; 99283; 84702

== ENCOUNTER 2023-08-29 12:25 | Outpatient (REF) | payer SELFPAY ==
--- NOTE | 2023-08-29 13:15 | PAPFT_PTH ---
PATIENT: Sarita Virgen LOC: [facility] U#:[id number] AGE/SX: 32/F ROOM: RE08/29/[address]: Lori Leslie : 1990 BED: DIS: 08/29/2023 SPEC #: [id number] RECD: 09/01/23 13:14 STATUS: NYA REMagaly #: [id number] CHARLES: 08/29/23 13:[address]: Lori Leslie [facility] Cytology RECD BY: Rebecca Storey ENTERED: 09/01/23 13:15 SP TYPE: PAPFT OTHR DR: Beba Paiz Tissues: 1 - CX/ENDOCX FOR PAP SMEARS Procedures: PAP THIN PREP/[facility] Screening HPV DNA PROBE Comments: [id number] (HPV 16 & 18/45)
== END 2023-08-29 12:26 | disposition home or self-care (01) ==
LOC: LBN 12:25
PROVIDERS: PCP Nurse Practitioner Family; Referring Provider Family Medicine; Visit Provider Family Medicine
DX: Z00.01 Encounter for general adult medical examination with abnormal findings (principal); Z12.4 Encounter for screening for malignant neoplasm of cervix
CPT/HCPCS: 88142; 87624